=== PATIENT | female | born 1985 | race Caucasian/White ===

== ENCOUNTER → 2016-10-03 | Outpatient (CLI) | payer OTHER ==
[~2016-10-03] MED LIST: ACET-1256 PO; AMOX500C3 PO; BCPILLS PO; CYM20 PO; CYM60 PO; DULO60CA44 PO; GABA-113 PO; IBUP-103 PO; LRS10 PO; NRN400 PO; NRN600 PO; OXYC1TAB3 PO
--- NOTE | 2016-10-03 20:26 | DIAGNOSTIC IMAGING REPORT ---
CERVICAL SPINE MRI HISTORY: Neck pain. Right arm numbness. TECHNIQUE: Multiplanar multisequence MRI of the cervical spine was performed without the use of contrast. COMPARISON STUDY: None. FINDINGS: Straightening of the cervical spine. Alignment is intact. No fractures. Prevertebral soft tissues and the C1-C2 interval are intact. The visualized posterior fossa is unremarkable. Mild disc space narrowing at C5-C6. The cervical spinal cord is normal in course, caliber, and signal intensity. Broad-based posterior disc bulge at T2-T3 with a small right paracentral disc protrusion. This likely abuts but does not deform the right anterior cord. This is only partially imaged on this study. C2-C3: No significant central canal or neural foraminal narrowing. C3-C4: No significant central canal or neural foraminal narrowing. C4-C5: Small broad-based posterior disc bulge without significant central canal or neural foraminal narrowing. C5-C6: Small broad-based posterior disc bulge asymmetric to the left resulting in near-complete effacement of the anterior thecal sac without cord deformity. There is also mild left-sided neural foraminal narrowing. C6-C7: Small left paracentral focal disc protrusion without significant central canal narrowing. There is mild left-sided neural foraminal narrowing. C7-T1: No significant central canal or neural foraminal narrowing. IMPRESSION: 1. Broad-based posterior disc bulge at T2-T3 with a small right paracentral disc protrusion. This likely abuts but does not deform the right anterior cord. This is only partially imaged on this study. 2. Small broad-based posterior disc bulge asymmetric to the left at C5-C6 resulting in near-complete effacement of the anterior thecal sac without cord deformity. There is also mild left neural foraminal narrowing. 3. Small left paracentral focal disc protrusion at C6-C7 without significant central canal narrowing. There is mild left-sided neural foraminal narrowing. 4. Straightening of the cervical spine. Electronically signed by: Douglas Wong M.D. 10/03/2016 8:23 PM Dictated Date/Time: 10/03/2016 8:17 PM
== END | disposition home or self-care (01) ==
LOC: C.MRI 19:31
PROVIDERS: ATTEND Orthopaedic Surgery Orthopaedic Surgery of the Spine
DX: M54.12 Radiculopathy, cervical region (principal)

== ENCOUNTER 2016-12-21 02:48 | Emergency (ER) | payer OTHER ==
[~2016-12-21] VITALS: Ht 157.5 cm; Wt 102.3 kg
[~2016-12-21 02:48] MED LIST changes: -ACET-1256 PO; -AMOX500C3 PO; -CYM60 PO; -DULO60CA44 PO; -GABA-113 PO; -IBUP-103 PO; -NRN600 PO; -OXYC1TAB3 PO
[2016-12-21 02:52] VITALS: TEMP 36.7; Ht 157.5 cm; Wt 102.3 kg
[2016-12-21] MEDS ORDERED: AMOXICILLIN 250 MG CAP PO STA (03:30)
[2016-12-21] MEDS ORDERED: OXYCODONE IR HOME PACK PO ONE (03:30)
[2016-12-21] MEDS ORDERED: AMOX500C3 PO (03:34)
[2016-12-21] MEDS ORDERED: OXYC1TAB3 PO (03:34)
[2016-12-21 03:52] VITALS: BP 142/90; PULSE 77; O2SAT 94
[2016-12-21] MEDS ORDERED: DULO60CA44 PO (03:54)
[2016-12-21] MEDS ORDERED: GABA-113 PO (03:55)
--- NOTE | 2016-12-21 03:57 | EMERGENCY ROOM VISIT NOTE ---
History First contact with patient: 03:19 Chief Complaint: DENTAL PAIN Stated Complaint: TOOTH/MOUTH PAIN Nursing Triage Summary: left upper dental pain that radiats into ear since 2100. pt took benzacaine, tylenol and aleve without relief. History of Present Illness The patient is a 31 year old female who presents to the Emergency Room with complaints of right upper dental pain for the past few days. Patient states her filling broke off and is to see the dentist. Pain currently 8 out of 10. She tried Tylenol and Motrin with no relief of symptoms. Patient denies chest pain, dyspnea, fever, chills, facial swelling, neck stiffness, dysphagia, cold symptoms. She is tolerate by mouth fluids and food. Review of Systems See HPI for pertinent positives & negatives. A total of 10 systems reviewed and were otherwise negative. Past Medical/Surgical History Medical Problems: (1) Calculus Of Kidney (2) Calculus Of Ureter (3) Cervicalgia (4) Cholecystectomy (5) Migraine Family History Cancer Diabetes mellitus FHx: gallbladder disease Kidney disease Kidney stones Social History Smoking Status: Current Every Day Smoker Alcohol Use: occasionally Drug Use: none Marital Status: Housing Status: lives with family Occupation Status: employed Current/Historical Medications Scheduled Amoxicillin (Amoxil), 500 MG PO TID Control Pills ( Control Pills), 1 TAB PO DAILY Duloxetine HCl (Duloxetine HCl), 20 MG PO DAILY Gabapentin (Gabapentin), 400 MG PO TID Scheduled PRN Baclofen (Baclofen), 10 MG PO BID PRN for Muscle Spasms Oxycodone Immediate Rel Tab (Roxicodone Ir), 1-2 TAB PO Q4H PRN for Severe Pain Allergies Coded Allergies: No Known Allergies (Unverified , 08/27/15) Physical Exam Vital Signs Date Time Temp Pulse Resp B/P (MAP) Pulse Ox O2 Delivery O2 Flow Rate FiO2 12/21/16 02:52 36.7 86 24 155/91 96 Room Air Physical Exam VITALS: Vitals are noted on the nurse's note and reviewed by myself. Vital signs stable. GENERAL: Pleasant female, in no acute distress, nondiaphoretic, well-developed well-nourished. SKIN: The skin was without rashes, erythema, edema, or bruising. There is no tenting of the skin. Capillary reflex less than 2 seconds. HEAD: Normocephalic atraumatic. EARS: External auditory canals clear, tympanic membranes pearly encarnacion without erythema or effusion bilaterally. EYES: Pupils equal round and reactive to light and accommodation. Conjunctivae without injection, sclerae without icterus. Extraocular movements intact. NOSE: Patent, turbinates without inflammation or discharge. No sinus tenderness. MOUTH: Mucous membranes moist. No Errol's angina Pharynx without erythema or exudate. Uvula midline. Airway patent. Tongue does not deviate. Dental exam: Right upper molar with dental decay with no palpable abscess. Overall dental hygiene fair. NECK: Supple without nuchal rigidity. No lymphadenopathy. No thyromegaly. Cervical spine is nontender. No JVD. No meningeal signs HEART: Regular rate and rhythm without murmurs gallops or rubs. LUNGS: Clear to auscultation bilaterally without wheezes, rales or rhonchi. No dullness to percussion. No retractions or accessory muscle use. ABDOMEN: Positive bowel sounds x 4. Normal tympanic percussion. Soft, nontender, without masses or organomegaly. Montesinos sign negative. No guarding or rebound tenderness. MUSCULOSKELETAL: No muscle atrophy, erythema, or edema noted. NEURO: Patient was alert and oriented to person place and time. Normal sensation to light and sharp touch. No focal neurological deficits. Medical Decision & Procedures Medications Administered Medications (Trade) Dose Ordered Sig/Diego Route Start Time Stop Time Status Last Admin Dose Admin Amoxicillin (Amoxil Cap) 500 mg NOW STAT PO 12/21/16 03:30 12/21/16 03:32 DC 12/21/16 03:47 500 MG Oxycodone HCl (Roxicodone Immediate Rel 5MG Home Pack) 1 homepack UD ONCE PO 12/21/16 03:30 12/21/16 03:32 DC 12/21/16 03:47 1 HOMEPACK ED Course Prior records reviewed and summarized as above. Triage Nursing notes reviewed. The patient's history was concerning for dental pain Differential diagnosis: Etiologies such as cellulitis, abscess, Errol angina, cavity, gingivitis, as well as others were entertained.. Physical examination: The physical examination was consistent with dental pain from dental decay ER treatment provided: Amoxicillin, OxyIR On reassessment the patient felt better. Diagnostics interpreted by me: Deferred This appears to be isolated dental pain from dental cavities. Patient was neurovascularly and neurologically intact. No signs of abscess or airway compromise or Errol angina. She is advised to take antibiotics as directed and to see dentistry as soon as possible for definitive care for her dental problem. She was counseled on proper dental hygiene. She verbalized understanding this. She is advised to return to the ER immediately for fevers, facial swelling, dysphagia, worsening signs or symptoms or as needed. By the evaluation outlined above emergent etiologies such as abscess, Errol angina, as well as others were deemed relatively unlikely. The pt informed about the findings as listed above. All questions were answered and pleased with the treatment. Return instructions were outlined and the patient was discharged in stable condition. Outpatient prescription management: Amoxicillin, OxyIR Referral: The patient was referred back to dentistry and primary care physician for follow -up in 2 to 3 days for a recheck of the current condition. Medical Decision As above [place] Drug Monitoring Program Search Results: patient reviewed within database, no issues identified Impression Primary Impression: Dental caries Additional Impression: Tooth pain with chewing Departure Information Dispostion Home / Self-Care Condition GOOD Prescriptions Oxycodone Immediate Rel Tab (ROXICODONE IR) 5 Mg Tab 1-2 TAB PO Q4H Y for Severe Pain, #10 TAB initial course Prov: Tri Serra PA-C 12/21/16 Amoxicillin (AMOXIL) 500 Mg Cap 500 MG PO TID for 10 Days, #30 CAP Prov: Tri Serra PA-C 12/21/16 Referrals Mansoor Oconnell D.O. Forms HOME CARE DOCUMENTATION FORM, IMPORTANT VISIT INFORMATION Patient Instructions Decay Tooth, Visit Dental, [facility] Additional Instructions Amoxicillin 500mg: Take one pill 3 times daily for 10 days for your infection. All antibiotics can cause diarrhea. If this occurs and you feel worse or it does not resolve in 1-2 days follow up with your doctor or return to the Emergency Department as this could be signs of serious underlying problems. Any medication can cause an allergic reaction, stop the pills immediately and return to the ER for rash, hives, breathing difficulties, or swelling. Oxycodone (OxyIR) 5mg: Take 1-2 pills every four hours for breakthrough pain. Avoid alcohol, operating machinery or dangerous equipment, working on ladders or roofs, DRIVING, or situations where being under the influence may be dangerous. It is recommended to use an [id number] stool softener such as Colace, 100mg twice daily while taking this medication to avoid constipation. Ibuprofen(Motrin, Advil) may be used for fever or pain. Use 600mg every six hours as needed. Take with food. Avoid using more than 2400mg in a 24 hour period. Do not use 2400mg per day for more than three consecutive days without physician direction. Prolonged inappropriate use can lead to stomach upset or ulcers. This medication can be taken if you need to drive, work, or perform activities which may be dangerous when taking narcotic pain medication. (AND/OR) Acetaminophen(Tylenol) may be used for fever or pain. Use 1000mg every six hours as needed. Avoid using more than 3000mg in a 24 hour period. This medication can be taken if you need to drive, work, or perform activities which may be dangerous when taking narcotic pain medication. [place] teeth twice a day, floss daily and do warm saltwater gargles 3 times a day. See a dentist as soon as possible for definitive care for your dental problem. Return to ER sooner for facial swelling, fever, redness, worsening signs or symptoms or as needed. Problem Qualifiers
== END 2016-12-21 03:53 | disposition home or self-care (01) ==
LOC: C.EDB 02:48
DX: K02.9 Dental caries, unspecified (principal); K08.89 Other specified disorders of teeth and supporting structures; Z83.3 Family history of diabetes mellitus; F17.200 Nicotine dependence, unspecified, uncomplicated

== ENCOUNTER 2017-02-03 19:11 | Emergency (ER) | payer OTHER ==
[~2017-02-03] VITALS: Ht 157.5 cm; Wt 99.8 kg
[~2017-02-03 19:11] MED LIST changes: -CYM20 PO; +DULO60CA44 PO; +GABA-113 PO; -NRN400 PO; +OXYC1TAB3 PO
[2017-02-03 19:14] VITALS: TEMP 36.9; Ht 157.5 cm; Wt 99.8 kg
[2017-02-03] MEDS ORDERED: ONDANSETRON INJ 2 MG/ML 2 ML VIAL IV STA (19:24)
[2017-02-03] MEDS ORDERED: SODIUM CHLORIDE 0.9% 1000ML 1,000 ML IV ONE (19:24)
[2017-02-03] MEDS ORDERED: SODIUM CHLORIDE 0.9% 1000ML 1,000 ML IV STA (19:24)
[2017-02-03 19:46] LABS: BASO % 0.3 %; BASO ABS # 0.03 K/uL (0-0.2); COMPLETE YES; EOS % 1.6 %; HEMATOCRIT 39.8 % (37-47); IG% 0.2 %; LYMPH % 35.8 %; LYMPH ABS # 3.36 K/uL (1.2-3.4); MEAN CELL VOLUME 85.6 fL (80-100); MEAN CORPUSCULAR HEMOGLOBIN 30.5 pg (25-34); MEAN CORPUSCULAR HGB CONC 35.7 g/dl (32-36); MEAN PLATELET VOLUME 10.7 fL (7.4-10.4); MONO % 6.8 %; NEUT % 55.3 %; PLATELET COUNT 342 K/uL (130-400); RED BLOOD COUNT 4.65 M/uL (4.2-5.4); WHITE BLOOD COUNT 9.38 K/uL (4.8-10.8)
[2017-02-03 20:01] LABS: URINE APPEARANCE CLEAR (CLEAR); URINE BILIRUBIN NEG (NEG); URINE COLOR YELLOW; URINE NITRITE NEG (NEG); URINE SPECIFIC GRAVITY 1.024 (1.000-1.030); UROBILINOGEN NEG (NEG)
[2017-02-03 20:03] LABS: MANUAL MICROSCOPIC REQUIRED? NO; REVIEW REQ? NO
[2017-02-03 20:03] LABS: BUN/CREATININE RATIO 10.6 (10-20); CALCIUM 8.6 mg/dl (8.5-10.1); CREATININE 0.7 mg/dl (0.60-1.20); POTASSIUM 3.6 mmol/L (3.5-5.1)
--- NOTE | 2017-02-03 20:03 | EMERGENCY ROOM VISIT NOTE ---
History Report prepared by Trudy: Aneta Hernandez Under the Supervision of: Dr. Deonte Welch M.D. First contact with patient: 19:19 Chief Complaint: NAUSEA Stated Complaint: STOMACH PAIN, NAUSEA Nursing Triage Summary: "I haven't gotten my period in over 2 weeks". pt c/o lower abd pain into lower back pain, nausea. Pt took at home preg test- neg. denies urinary symptoms History of Present Illness The patient is a 31 year old female who presents to the Emergency Room with complaints of worsening nausea starting two weeks ago. The patient states that her period is two weeks late. She states she took a test and it was negative. She reports that she doesn't think she could be . The patient complains of back pain and abdominal pain. She currently rates her pain as a 7/ 10 in severity. She reports that she has been taking Ibuprofen with no relief. The patient denies urinary symptoms, the pain radiating down her legs, vomiting , chest pain, shortness of breath, abnormal bowel movements, and being around anyone who has been sick. The patient notes a history of ovarian cysts. Source of History: patient Onset: two weeks ago Position: other (global) Symptom Intensity: 7/10 Quality: other (global) Timing: worsening Associated Symptoms: + abdominal pain, + back pain, No chest pain, No SOB, No vomiting, No urinary symptoms Note: The patient denies the pain radiating down her legs, abnormal bowel movements, and being around anyone who is sick. Review of Systems See HPI for pertinent positives & negatives. A total of 10 systems reviewed and were otherwise negative. Past Medical & Surgical Medical Problems: (1) Calculus Of Kidney (2) Calculus Of Ureter (3) Cervicalgia (4) Cholecystectomy (5) Migraine Old medical records were reviewed. Nurse's notes were reviewed and I agree with. Family History Cancer Diabetes mellitus FHx: gallbladder disease Kidney disease Kidney stones Social History Smoking Status: Current Every Day Smoker Alcohol Use: occasionally Drug Use: none Marital Status: Housing Status: lives with family Occupation Status: employed Current/Historical Medications Scheduled Duloxetine HCl (Duloxetine HCl), 60 MG PO DAILY Gabapentin (Gabapentin), 600 MG PO TID Scheduled PRN Acetaminophen (Tylenol), 1,000 MG PO Q6H PRN for Pain or Fever Baclofen (Baclofen), 10 MG PO TID PRN for Muscle Spasm Ibuprofen Tab (Advil), 800 MG PO Q8 PRN for Pain or Fever Allergies Coded Allergies: No Known Allergies (Unverified , 08/27/15) Physical Exam Vital Signs Date Time Temp Pulse Resp B/P (MAP) Pulse Ox O2 Delivery O2 Flow Rate FiO2 02/03/17 21:30 69 16 132/71 95 02/03/17 20:18 80 18 131/66 95 Room Air 02/03/17 19:14 36.9 91 16 132/86 97 Room Air Physical Exam General: Well developed well nourished in no acute distress, breathing comfortably on room air. Normal speech. Non-ill appearing middle aged woman. HEENT: Normal cephalic atraumatic. Pupils are equal round and reactive to light. Extraocular movements are intact. Oropharynx is pink with moist mucous membranes. No swelling of the mouth lips or tongue. Neck: Supple with a midline trachea. No meningeal signs or stiffness, no JVD or bruits. No Stridor. Chest: Clear to auscultation bilaterally. No wheezes or rhonchi. No increased work of breathing. Heart: regular rate and rhythm. Abdomen: Soft, nondistended without rebound guarding or rigidity. Mildly tender in bilateral lower quadrants. No peritonitis or masses. Tenderness in RUQ. Extremities: No cyanosis clubbing or edema. No calf tenderness or assymetry Spine/Back. Non tender to palpation. No CVA tenderness Skin: Good turgor without rashes. Neurologic exam: Cranial nerves two through 12 are intact. Motor and sensation are intact and symmetrical throughout. Medical Decision & Procedures ER Provider Diagnostic Interpretation: Radiology results as stated below per my review and radiologist interpretation: PELVIC COMPLETE NON OB HISTORY: 31 years-old Female acute pelvic pain. Concern for possible ovarian cyst. COMPARISON: CT abdomen and pelvis 10/31/2015 TECHNIQUE: Multiple real-time sonographic images of the deep pelvic structures were obtained transabdominally assessing grayscale appearance, color and spectral flow. Patient refused the transvaginal portion of the study. FINDINGS: Anteflexed uterus is seen, 11.8 x 4.0 x 5.7 cm. No focal myometrial mass lesion identified. Urinary bladder is partially collapsed. Endometrium is homogeneous, 1.1 cm. Small nabothian cyst is seen. Right ovary measures 4.3 x 4.0 x 3.5 cm. Within the right ovary there is a mildly complex cystic structure, 3.8 x 3.3 x 2.7 cm without internal vascularity and increased through transmission. Arterial inflow and venous outflow is documented within the right ovary. The left ovary measures 2.6 x 1.9 x 2.0 cm and is unremarkable with arterial inflow documented. No significant free pelvic fluid. IMPRESSION: 1. Mildly complex cyst of the right ovary is seen, 3.8 cm. No evidence of ovarian torsion. 2. Normal sonographic appearance of the uterus and left ovary. The above report was generated using voice recognition software. It may contain grammatical, syntax or spelling errors. Electronically signed by: Jesus Rae M.D. 02/03/2017 9:02 PM Dictated Date/Time: 02/03/2017 8:59 PM Laboratory Results 02/03/17 19:30 Red Blood Count 4.65, Mean Corpuscular Volume 85.6, Mean Corpuscular Hemoglobin 30.5, Mean Corpuscular Hemoglobin Concent 35.7, Mean Platelet Volume 10.7, Neutrophils (%) (Auto) 55.3, Lymphocytes (%) (Auto) 35.8, Monocytes (%) (Auto) 6.8, Eosinophils (%) (Auto) 1.6, Basophils (%) (Auto) 0.3, Neutrophils # (Auto) 5.18, Lymphocytes # (Auto) 3.36, Monocytes # (Auto) 0.64, Eosinophils # (Auto) 0.15, Basophils # (Auto) 0.03 02/03/17 19:30 Test 02/03/17 19:30 02/03/17 19:45 White Blood Count 9.38 K/uL (4.8-10.8) Red Blood Count 4.65 M/uL (4.2-5.4) Hemoglobin 14.2 g/dL (12.0-16.0) Hematocrit 39.8 % (37-47) Mean Corpuscular Volume 85.6 fL (80-100) Mean Corpuscular Hemoglobin 30.5 pg (25-34) Mean Corpuscular Hemoglobin Concent 35.7 g/dl (32-36) Platelet Count 342 K/uL (130-400) Mean Platelet Volume 10.7 fL (7.4-10.4) Neutrophils (%) (Auto) 55.3 % Lymphocytes (%) (Auto) 35.8 % Monocytes (%) (Auto) 6.8 % Eosinophils (%) (Auto) 1.6 % Basophils (%) (Auto) 0.3 % Neutrophils # (Auto) 5.18 K/uL (1.4-6.5) Lymphocytes # (Auto) 3.36 K/uL (1.2-3.4) Monocytes # (Auto) 0.64 K/uL (0.11-0.59) Eosinophils # (Auto) 0.15 K/uL (0-0.5) Basophils # (Auto) 0.03 K/uL (0-0.2) RDW Standard Deviation 41.3 fL (36.4-46.3) RDW Coefficient of Variation 13.2 % (11.5-14.5) Immature Granulocyte % (Auto) 0.2 % Immature Granulocyte # (Auto) 0.02 K/uL (0.00-0.02) Anion Gap 8.0 mmol/L (3-11) Est Creatinine Clear Calc Drug Dose 127.5 ml/min Estimated GFR () 132.9 Estimated GFR (Non- 114.6 BUN/Creatinine Ratio 10.6 (10-20) Calcium Level 8.6 mg/dl (8.5-10.1) Total Bilirubin 0.3 mg/dl (0.2-1) Direct Bilirubin 0.1 mg/dl (0-0.2) Aspartate Amino Transf (AST/SGOT) 11 U/L (15-37) Alanine Aminotransferase (ALT/SGPT) 17 U/L (12-78) Alkaline Phosphatase 96 U/L (45-117) Total Protein 7.3 gm/dl (6.4-8.2) Albumin 3.5 gm/dl (3.4-5.0) Lipase 107 U/L (73-393) Human Chorionic Gonadotropin, Qual NEG (NEG) Urine Color YELLOW Urine Appearance CLEAR (CLEAR) Urine pH 6.0 (4.5-7.5) Urine Specific [place] 1.024 (1.000-1.030) Urine Protein NEG (NEG) Urine Glucose (UA) NEG (NEG) Urine Ketones NEG (NEG) Urine Occult Blood NEG (NEG) Urine Nitrite NEG (NEG) Urine Bilirubin NEG (NEG) Urine Urobilinogen NEG (NEG) Urine Leukocyte Esterase NEG (NEG) Laboratory studies as stated above per my review. Medications Administered Medications (Trade) Dose Ordered Sig/Diego Route Start Time Stop Time Status Last Admin Dose Admin Sodium Chloride 1,000 ml @ 999 mls/hr Q1H1M STAT IV 02/03/17 19:24 02/03/17 20:24 DC 02/03/17 19:38 999 MLS/HR Sodium Chloride 1,000 ml @ 150 mls/hr Q6H40M ONCE IV 02/03/17 19:24 02/03/17 21:51 DC 02/03/17 19:39 150 MLS/HR Ondansetron HCl (Zofran Inj) 4 mg NOW STAT IV 02/03/17 19:24 02/03/17 19:27 DC 02/03/17 19:42 4 MG Ketorolac Tromethamine (Toradol Inj) 30 mg NOW STAT IV 02/03/17 21:19 02/03/17 21:20 DC 02/03/17 21:29 30 MG ED Course 1920: Past medical records reviewed. The patient was evaluated in room B3B, and a complete history and physical examination were performed. 1923: Ordered Zofran Inj 4 mg IV, NSS 1000 ml @ 150 mls/hr IV, NSS 1000 ml @ 999 mls/hr IV. 2104: I reevaluated the patient, but she was in ultrasound. 2115: Upon reevaluation, the patient is resting comfortably. I discussed the results and treatment plan with her. She verbalized agreement of the treatment plan. The patient was discharged home. 2118: Ordered Toradol Inj 30 mg IV. Medical Decision Differential diagnoses include ovarian cyst, infection, inflammation, UTI, , ectopic . This patient comes in as described above. She was placed in room B4. She comes in complaining of lower abdominal pain bilaterally that is been going on for about 2 weeks. She also has no period for 2 weeks. She's had no vaginal bleeding. she took a home test was negative. She has a history of ovarian cysts. She also history of fibromyalgia among other medical problems. She looks well on exam. she has no peritonitis .she has some mild right upper quadrant tenderness as well however her gallbladder from previously surgically removed. IV access was established and she was hydrated with IV normal saline. She was given Zofran 4 mg IV. Blood work and urinalysis and ultrasound were ordered. Is no white count or fever to suggest infection. She's no peritonitis. Her serum test was negative. She has no acute electrolyte or metabolic abdomen she has nothing to suggest liver or gallbladder or pancreas disease. Ultrasound was obtained of the pelvis. There is a small cyst on the right but no evidence of torsion. She was given Toradol 30 mg IV. She has no vaginal bleeding or discharge or anything to suggest a pelvic infection. She's going to follow-up with her regular doctor or drafting teacher this week for recheck and use anti-inflammatories. Return if: increasing pain, worsening of symptoms, fever or chills, any new problems or concerns. She is happy with plan and discharged to home. Impression Primary Impression: Lower abdominal pain Scribe Attestation The scribe's documentation has been prepared under my direction and personally reviewed by me in its entirety. I confirm that the note above accurately reflects all work, treatment, procedures, and medical decision making performed by me. Departure Information Dispostion Home / Self-Care Referrals No Doctor, Assigned (PCP) Forms HOME CARE DOCUMENTATION FORM, IMPORTANT VISIT INFORMATION Patient Instructions My [facility] Additional Instructions Rest Drink plent of fluids Use ibuprofen 400 mg every 6 hours, take with food Return if: Increasing pain, fever chills, worsening of symptoms, any new problems or concerns. Follow-up with your drafting teacher or regular doctor next couple days for recheck
[2017-02-03 20:10] LABS: PREG INTERNAL NEGATIVE QC NEG CLEAR BACKGROUND; PREG INTERNAL POSITIVE QC POS CONTROL LINE
--- NOTE | 2017-02-03 21:03 | DIAGNOSTIC IMAGING REPORT ---
PELVIC COMPLETE NON OB HISTORY: 31 years-old Female acute pelvic pain. Concern for possible ovarian cyst. COMPARISON: CT abdomen and pelvis 10/31/2015 TECHNIQUE: Multiple real-time sonographic images of the deep pelvic structures were obtained transabdominally assessing grayscale appearance, color and spectral flow. Patient refused the transvaginal portion of the study. FINDINGS: Anteflexed uterus is seen, 11.8 x 4.0 x 5.7 cm. No focal myometrial mass lesion identified. Urinary bladder is partially collapsed. Endometrium is homogeneous, 1.1 cm. Small nabothian cyst is seen. Right ovary measures 4.3 x 4.0 x 3.5 cm. Within the right ovary there is a mildly complex cystic structure, 3.8 x 3.3 x 2.7 cm without internal vascularity and increased through transmission. Arterial inflow and venous outflow is documented within the right ovary. The left ovary measures 2.6 x 1.9 x 2.0 cm and is unremarkable with arterial inflow documented. No significant free pelvic fluid. IMPRESSION: 1. Mildly complex cyst of the right ovary is seen, 3.8 cm. No evidence of ovarian torsion. 2. Normal sonographic appearance of the uterus and left ovary. The above report was generated using voice recognition software. It may contain grammatical, syntax or spelling errors. Electronically signed by: Jesus Rae M.D. 02/03/2017 9:02 PM Dictated Date/Time: 02/03/2017 8:59 PM
[2017-02-03] MEDS ORDERED: NRN600 PO (21:19)
[2017-02-03] MEDS ORDERED: KETOROLAC TROMETHAMINE 30 MG/ML VIAL IV STA (21:19)
[2017-02-03] MEDS ORDERED: CYM60 PO (21:19)
[2017-02-03] MEDS ORDERED: ACET-1256 PO (21:20)
[2017-02-03] MEDS ORDERED: IBUP-103 PO (21:20)
[2017-02-03 21:30] VITALS: BP 132/71; PULSE 69; O2SAT 95
== END 2017-02-03 21:30 | disposition home or self-care (01) ==
LOC: C.EDB 19:13
DX: R10.30 Lower abdominal pain, unspecified (principal); Z87.442 Personal history of urinary calculi; N83.209 Unspecified ovarian cyst, unspecified side; G43.909 Migraine, unspecified, not intractable, without status migrainosus; Z80.9 Family history of malignant neoplasm, unspecified; Z83.3 Family history of diabetes mellitus; Z83.79 Family history of other diseases of the digestive system; Z84.1 Family history of disorders of kidney and ureter; F17.210 Nicotine dependence, cigarettes, uncomplicated; Z79.899 Other long term (current) drug therapy

== ENCOUNTER → 2017-05-09 | Outpatient (CLI) | payer OTHER ==
[~2017-05-09] MED LIST changes: +ACET-1256 PO; -BCPILLS PO; +CYM60 PO; -DULO60CA44 PO; -GABA-113 PO; +GADAVIST IV PRN; +IBUP-103 PO; +NRN600 PO; -OXYC1TAB3 PO
--- NOTE | 2017-05-09 17:58 | DIAGNOSTIC IMAGING REPORT ---
Brain MRI WITH AND WITHOUT CONTRAST HISTORY: Headaches. Numbness in face arms and leg. R41.9 Cognitive complaints TECHNIQUE: Multiplanar multisequence MRI of the brain was performed both before and after the intravenous administration of contrast. COMPARISON STUDY: Head CT 11/17/2013. FINDINGS: There are no areas of restricted diffusion to suggest acute infarction. The midline structures are intact. The paranasal sinuses are clear. The mastoid air cells are clear. The ventricles and sulci are within normal limits for age. There is no mass, hematoma, midline shift. The major vascular flow-voids at the skull base are well maintained. Postcontrast sequences show no areas of abnormal enhancement. IMPRESSION: Normal brain MRI. Electronically signed by: Douglas Wong M.D. 05/09/2017 5:57 PM Dictated Date/Time: 05/09/2017 5:53 PM
== END | disposition home or self-care (01) ==
LOC: C.MRI 16:18
PROVIDERS: ATTEND Psychiatry & Neurology Neurology
DX: R41.9 Unspecified symptoms and signs involving cognitive functions and awareness (principal)

== ENCOUNTER 2017-09-05 18:07 | Emergency (ER) | payer OTHER ==
[~2017-09-05] VITALS: Ht 157.5 cm; Wt 107.0 kg
[~2017-09-05 18:07] MED LIST changes: -ACET-1256 PO; -CYM60 PO; -GADAVIST IV PRN; -IBUP-103 PO; -NRN600 PO
[2017-09-05 18:19] VITALS: TEMP 36.8; Ht 157.5 cm; Wt 107.0 kg
[2017-09-05] MEDS ORDERED: TRAM-10 PO (18:48)
[2017-09-05] MEDS ORDERED: FLX10 PO (18:48)
[2017-09-05] MEDS ORDERED: DEXAMETHASONE SOD INJ 4 MG/ML VIAL IM STA (19:04)
[2017-09-05] MEDS ORDERED: CYCLOBENZAPRINE HCL 10 MG TAB PO STA (19:04)
[2017-09-05] MEDS ORDERED: HYDROmorphone INJ 2 MG/ML SYR/VIAL IM ONE (19:15)
[2017-09-05] MEDS ORDERED: KETOROLAC TROMETHAMINE 60 MG/2 ML VIAL IM ONE (19:15)
--- NOTE | 2017-09-05 19:31 | EMERGENCY ROOM VISIT NOTE ---
History First contact with patient: 18:33 Chief Complaint: BACK PAIN Stated Complaint: BACK PAIN,NECK BT SHOULDER BLADES & TAILBONE,DIZZY History of Present Illness The patient is a 32 year old female who presents to the Emergency Room with complaints of severe pain in her neck, mid and lower back for the last week. The patient had a mechanical fall landing on her buttocks. She has a history of chronic pain in her neck and back from bulged disks. She usually follows with Dr. Salazar. She could not get an appointment with him until October 03. She has been trying Tylenol, Flexeril and ibuprofen at home with minimal relief. She does have numbness and tingling in her hands bilaterally, particularly when she sleeps. She is also having tingling and numbness on the lateral and anterior aspect of her right thigh. No saddle paresthesias. No urinary or bowel incontinence. No weakness. Review of Systems 6 system review negative. Please see pertinent positives in the history of present illness section. Past Medical/Surgical History Medical Problems: (1) Calculus Of Kidney (2) Calculus Of Ureter (3) Cervicalgia (4) Cholecystectomy (5) Migraine Family History Cancer Diabetes mellitus FHx: gallbladder disease Kidney disease Kidney stones Social History Smoking Status: Current Every Day Smoker Alcohol Use: occasionally Drug Use: none Marital Status: Housing Status: lives with family Occupation Status: employed Current/Historical Medications Scheduled Cyclobenzaprine Hcl (Flexeril), 10 MG PO TID Duloxetine HCl (Duloxetine HCl), 60 MG PO DAILY Gabapentin (Gabapentin), 600 MG PO TID Methylprednisolone (Medrol Dosepak), 0 PO DAILY Scheduled PRN Acetaminophen (Tylenol), 1,000 MG PO Q6H PRN for Pain or Fever Cyclobenzaprine HCl (Cyclobenzaprine HCl), 10 MG PO BID PRN for Muscle Spasm Ibuprofen Tab (Advil), 800 MG PO Q8 PRN for Pain or Fever Oxycodone/Acetaminophen 5MG/325MG (Percocet 5MG/325MG), 1-2 TABS PO Q4H PRN for prn Tramadol (Ultram), 50 MG PO Q6H PRN for Pain Physical Exam Vital Signs Date Time Temp Pulse Resp B/P (MAP) Pulse Ox O2 Delivery O2 Flow Rate FiO2 09/05/17 23:27 98 16 146/92 96 09/05/17 23:04 98 16 146/92 96 Room Air 09/05/17 20:00 88 20 116/76 94 Room Air 09/05/17 18:19 36.8 109 20 133/88 94 Room Air Physical Exam VITALS: Vitals are noted on the nurse's note and reviewed by myself. Vital signs stable. GENERAL: 32-year-old female, in moderate discomfort,, SKIN: The skin was without rashes, erythema, edema, or bruising. HEAD: Normocephalic atraumatic. HEART: Regular rate and rhythm without murmurs gallops or rubs. LUNGS: Clear to auscultation bilaterally without wheezes, rales or rhonchi. No accessory muscle use. MUSCULOSKELETAL: Tenderness to palpation noted over the cervical spinous processes, mid thoracic spinous processes and the sacral area. Radial pulse +2 bilaterally. Hand Cloth Folder strength 5/5 bilaterally. Strength in the lower extremities is equal bilaterally. Sensation in lower extremities is equal and intact bilaterally. DP pulse +2 bilaterally. NEURO: Patient was alert and oriented to person place and time. Normal sensation to touch. No focal neurological deficits. Medical Decision & Procedures ER Provider Diagnostic Interpretation: MRI cervical spine, thoracic spine and lumbar spine IMPRESSION: 1. Multilevel degenerative changes with disc osteophyte complexes from C4-5 through C6-7. 2. Spinal canal narrowing most significant at C5-6 with mild contouring of the left paracentral anterior spinal cord. 3. Neural foraminal narrowing at C5-6 and C6-7 on the left. Electronically signed by: Lenny Braun M.D. 09/05/2017 10:59 PM Dictated Date/Time: 09/05/2017 10:53 PM The status of this report is Signed. Draft = Not yet reviewed or approved by Radiologist. Signed = Reviewed and approved by Radiologist. <AttendingPhy></AttendingPhy> <FamilyPhy>Amanda Leggett D.O.</FamilyPhy> < PrimaryPhy>Amanda Leggett D.O.</PrimaryPhy> <UnitNumber>[id number]</ UnitNumber> <VisitNumber>[id number]</ IMPRESSION: Minimal degenerative change in the lower lumbar spine without evidence of neural foraminal or spinal canal narrowing. Electronically signed by: Lenny Braun M.D. 09/05/2017 9:55 PM Dictated Date/Time: 09/05/2017 9:52 PM The status of this report is Signed. Draft = Not yet reviewed or approved by Radiologist. Signed = Reviewed and approved by Radiologist. <AttendingPhy></AttendingPhy> <FamilyPhy>Amanda Leggett D.O.</FamilyPhy> < PrimaryPhy>Amanda Leggett D.O.</PrimaryPhy> <UnitNumber>[id number]</ UnitNumber> <VisitNumber>[id number]</VisitNumber> IMPRESSION: Multilevel degenerative changes of the upper thoracic spine with small disc osteophyte complexes from T2-3 through T7-8. No significant spinal canal or neural foraminal narrowing. Electronically signed by: Lenny Braun M.D. 09/05/2017 10:28 PM Dictated Date/Time: 09/05/2017 10:23 PM The status of this report is Signed. Draft = Not yet reviewed or approved by Radiologist. Signed = Reviewed and approved by Radiologist. <AttendingPhy></AttendingPhy> <FamilyPhy>Amanda Leggett D.O.</FamilyPhy> < PrimaryPhy>Amanda Leggett D.O.</PrimaryPhy> <UnitNumber>[id number]</ UnitNumber> <VisitNumber>[id number]</VisitNumber> <PatientName>SETH CHIN</PatientName> <DateOfBirth>1985</DateOfBirth> <Location>[facility]</Location > <ServiceDate>09/05/17</ServiceDate> <MNE>ESINDI</MNE> <OrderingPhy>Tiffanie Wilkinson PA-C</OrderingPhy> <OrderingPhyMNE>f rep ord dr gordon</OrderingPhyMNE> < DictatingPhyMNE>f rep dict dr gordon</DictatingPhyMNE> <CCListMNE>f rep ct mne</ CCListMNE> <AdmittingPhyMNE>f pt admit dr gordon</AdmittingPhyMNE> <AttendingPhyMNE >f pt attend dr gordon</AttendingPhyMNE> <ConsultingPhyMNE>f pt consult dr gordon</ConsultingPhyMNE> <FamilyPhyMNE>f pt fam dr gordon</FamilyPhyMNE> <OtherPhyMNE>f pt other dr gordon</OtherPhyMNE> < PrimaryPhyMNE>f pt prim care dr gordon</PrimaryPhyMNE> <ReferringPhyMNE>f pt referring dr gordon</ReferringPhyMNE> Medications Administered Medications (Trade) Dose Ordered Sig/Diego Route Start Time Stop Time Status Last Admin Dose Admin Hydromorphone HCl (Dilaudid Inj) 2 mg ONE ONCE IM 09/05/17 19:15 09/05/17 19:16 DC 09/05/17 19:32 2 MG Ketorolac Tromethamine (Toradol Inj) 60 mg ONE ONCE IM 09/05/17 19:15 09/05/17 19:16 DC 09/05/17 19:32 60 MG Dexamethasone Sodium Phosphate (Decadron Inj) 10 mg NOW STAT IM 09/05/17 19:04 09/05/17 19:07 DC 09/05/17 19:04 10 MG Cyclobenzaprine HCl (Flexeril Tab) 10 mg NOW STAT PO 09/05/17 19:04 09/05/17 19:07 DC 09/05/17 19:04 10 MG ED Course The patient was seen and examined She was medicated with Dilaudid 2 mg, Toradol 60 mg and Decadron 10 mg IM. She was given Flexeril 10 mg by mouth. Imaging was performed and reviewed Upon reassessment, the patient was more comfortable. We discussed the results of her MRI. She voiced understanding, was comfortable being discharged home. Discharge instructions were reviewed, and she was discharged in good condition Medical Decision Differential diagnosis: Spine fracture, ligamentous injury, subluxation, spondylolisthesis, spondylosis, herniated disc, contusion, muscle spasm, ureteral stone This patient is a 32-year-old female that presents to the emergency department with diffuse back pain after a mechanical fall. On exam, she was tender over some spinous processes and thoracic, cervical and lumbar spine. She was uncomfortable in appearance. The patient was complaining of numbness and tingling in her hands and right lateral thigh. I cannot appreciate any weakness on exam. She was neurovascularly intact. An MRI was performed. She does have some degenerative disc disease resulting in moderate stenosis at C5- C6. The patient had good symptomatic relief in the emergency department. I believe she is stable to be discharged home with follow-up from her orthopedic surgeon. She was comfortable with this plan. She will be treated with short course of narcotics, muscle relaxants and steroids. She agreed to return to the emergency department with any worsening symptoms such as saddle paresthesias or incontinence or weakness... This chart was completed in part utilizing [employer] Speech Voice Recognition software. Attempts were made to minimize the grammatical errors, random word insertions, pronoun errors and incomplete sentences. Any formal questions or concerns about the content, text or information contained within the body of this dictation should be directly addressed to the provider for clarification. Impression Primary Impression: Back pain Departure Information Dispostion Home / Self-Care Condition GOOD Prescriptions Cyclobenzaprine Hcl (FLEXERIL) 10 Mg Tab 10 MG PO TID for Muscle Spasms, #20 TAB Prov: Tiffanie Wilkinson PA-C 09/05/17 Methylprednisolone (MEDROL DOSEPAK) 4 Mg Carlos 0 PO DAILY, #1 PKT Prov: Tiffanie Wilkinson PA-C 09/05/17 Oxycodone/Acetaminophen 5MG/325MG (PERCOCET 5MG/325MG) Tab 1-2 TABS PO Q4H Y for prn, #20 TAB For Initial Treatment Prov: Tiffanie Wilkinson PA-C 09/05/17 Referrals Amanda Leggett D.O. (PCP) Iglesia Suggs M.D. Patient Instructions [facility] Additional Instructions You have been treated in the Emergency Department for Back Pain. You have received pain medicine in the emergency department which impairs your ability to operate a vehicle. It is illegal for you to drive after receiving these medicines. Please follow-up with the orthopedic doctor as soon as possible in addition to your primary care physician. Call tomorrow morning for a follow-up appointment. Please take the entire course of steroids Ibuprofen 600 mg every 6 hours Percocet 1-2 tabs every 4 hours for severe pain. Do not drink alcohol or drive while taking this medication. This may be taken with ibuprofen, but avoid Tylenol. Flexeril every 8 hours as needed for muscle spasm/pain. Please also do not drink alcohol or drive while taking this medication. Please do not hesitate to return to the emergency department for any new, worsening or concerning symptoms; especially, problems with urination or bowel movements, numbness or tingling in your groin or weakness in extrema It was a pleasure participating in your care today
[2017-09-05] MEDS ORDERED: CYM60 PO (21:19)
[2017-09-05] MEDS ORDERED: NRN600 PO (21:19)
[2017-09-05] MEDS ORDERED: IBUP-103 PO (21:20)
[2017-09-05] MEDS ORDERED: ACET-1256 PO (21:20)
--- NOTE | 2017-09-05 21:56 | DIAGNOSTIC IMAGING REPORT ---
LUMBAR SPINE W/O CONTRAST CLINICAL HISTORY: 32 years-old Female presenting with R leg numbness low back pain, fall downstairs one week ago, right side numbness and tingling. TECHNIQUE: Multisequence, multiplanar MR imaging of the lumbar spine was performed without the use of intravenous contrast. IV contrast: None. COMPARISON: CT of abdomen pelvis from 10/31/2015. FINDINGS: Localizer images: Unremarkable. Normal lumbar lordosis. Vertebral bodies maintain normal height, alignment, and bone marrow signal intensity. No evidence of fracture. No bony edema. Intervertebral disc desiccation and mild height loss noted at L4-5 and L5-S1. Remaining intervertebral discs are preserved. Minimal disc bulge at L4-5 without significant neural foraminal or spinal canal narrowing. Similar findings noted at L5-S1. Spinal cord ends in good position at L1. Cauda equina normal in morphology. Paraspinal soft tissues normal. Nonspecific edema in the subcutaneous tissue of the lumbar region. IMPRESSION: Minimal degenerative change in the lower lumbar spine without evidence of neural foraminal or spinal canal narrowing. Electronically signed by: Lenny Braun M.D. 09/05/2017 9:55 PM Dictated Date/Time: 09/05/2017 9:52 PM
--- NOTE | 2017-09-05 22:29 | DIAGNOSTIC IMAGING REPORT ---
THORACIC SPINE WITHOUT CLINICAL HISTORY: 32 years-old Female presenting with mid back pain. TECHNIQUE: Multisequence, multiplanar MR imaging of the thoracic spine was performed without the use of intravenous contrast. IV contrast: None. COMPARISON: CTA chest from . FINDINGS: Localizer images: Unremarkable. Normal thoracic kyphosis. Vertebral bodies maintain normal height, alignment, and bone marrow signal intensity. Intervertebral discs demonstrate desiccation in the upper thoracic spine, where there are disc osteophyte complexes noted from T2-3 through T7-8. These result in mild degrees of effacement of the ventral thecal sac. Minimal contouring of the spinal cord results, which is greatest at T7-8 (series 8 image 17). No neural foraminal narrowing. Thoracic spinal cord normal in morphology and signal intensity. Paraspinal soft tissues within normal limits. IMPRESSION: Multilevel degenerative changes of the upper thoracic spine with small disc osteophyte complexes from T2-3 through T7-8. No significant spinal canal or neural foraminal narrowing. Electronically signed by: Lenny Braun M.D. 09/05/2017 10:28 PM Dictated Date/Time: 09/05/2017 10:23 PM
--- NOTE | 2017-09-05 23:00 | DIAGNOSTIC IMAGING REPORT ---
CERVICAL WITHOUT CONTRAST CLINICAL HISTORY: 32 years-old Female presenting with numbness in bilateral hands neck pain. TECHNIQUE: Multisequence, multiplanar MR imaging of the cervical spine was performed without the use of intravenous contrast. IV contrast: None. COMPARISON: 10/03/2016. FINDINGS: Localizer images: Unremarkable. Straightening of normal cervical lordosis likely positional and secondary to multilevel degenerative changes. Vertebral bodies maintain normal height, alignment, bone marrow signal intensity. Diffuse intervertebral disc desiccation no height loss is now apparent. Disc osteophyte complexes evident at C4-5 through C6-7. These result in minimal thecal sac effacement at C4-5. More significant effacement at C5-6 with resultant mild contouring of the left paracentral anterior spinal cord. Similar though less severe findings at C6-7. Neural foraminal narrowing evident, mild on the left at C5-6 and moderate on the left at C6-7. Cervical spinal cord normal in signal intensity and morphology apart from mild contouring as mentioned above. Paraspinal soft tissues normal. No epidural collection. IMPRESSION: 1. Multilevel degenerative changes with disc osteophyte complexes from C4-5 through C6-7. 2. Spinal canal narrowing most significant at C5-6 with mild contouring of the left paracentral anterior spinal cord. 3. Neural foraminal narrowing at C5-6 and C6-7 on the left. Electronically signed by: Lenny Braun M.D. 09/05/2017 10:59 PM Dictated Date/Time: 09/05/2017 10:53 PM
[2017-09-05] MEDS ORDERED: METH4PAK PO (23:16)
[2017-09-05] MEDS ORDERED: CYCL10TA6 PO (23:16)
[2017-09-05] MEDS ORDERED: OXYC-57 PO (23:16)
[2017-09-05 23:27] VITALS: BP 146/92; PULSE 98; O2SAT 96
== END 2017-09-05 23:29 | disposition home or self-care (01) ==
LOC: C.EDB 18:08 → C.EDC 23:29
DX: M54.2 Cervicalgia (principal); M54.6 Pain in thoracic spine; M54.5 Low back pain; R20.0 Anesthesia of skin; R20.2 Paresthesia of skin; F17.200 Nicotine dependence, unspecified, uncomplicated; Z87.442 Personal history of urinary calculi; Z90.49 Acquired absence of other specified parts of digestive tract; Z83.3 Family history of diabetes mellitus; Z84.1 Family history of disorders of kidney and ureter

== ENCOUNTER 2022-10-17 19:04 | Inpatient (IN) ==
--- NOTE | 2022-10-17 19:22 | Emergency Department Note ---
Impression & Plan Mood disorder, Depression, Suicidal ideations ED Provider Note NAME: SETH CHIN AGE: 37 SEX: F : 1985 ARRIVES VIA: Walk-In INFORMANT: Patient ED PROVIDER(S): Markie Faulkner DO CHIEF COMPLAINT: Suicidal ideations HPI: Patient is a 36-year-old female who presents to the ER for suicidal ideations. She notes that she has been struggling to hold it together. She d oes have a history of bipolar. She was recently decreased on her Effexor and added Lamictal within the past 24 hours. She is currently taking amitriptyline as well. She notes that she feels manic. She cannot sleep. She has not been eating and drinking. She has 2 girls and she feels they are much better off without her. She feels hopeless. She has not been able to go to work. She is getting no support from her family. She thinks that both her children would be much better off being raised by her mother. She denies any auditory visual hallucinations. She feels as though she is a danger to herself and cannot take it anymore and wants to come in to be admitted. No clear plan at this point to kill her self. But previously she has thought of driving off the road. PAST MEDICAL HISTORY:See Below PAST SURGICAL HISTORY:See Below FAMILY HISTORY:See Below SOCIAL HISTORY:See Below HOME MEDICATIONS:See Below ALLERGIES:See Below VITALS:See Below PHYSICAL EXAMINATION: GENERAL: Sitting up in bed, alert, tearful, disheveled EYE EXAM: normal conjunctiva. OROPHARYNX: no exudate, no erythema, lips, buccal mucosa, and tongue normal and mucous membranes are moist NECK: supple, no nuchal rigidity, no adenopathy, non-tender LUNGS: Clear to auscultation. Normal chest wall mechanics HEART: no murmurs, S1 normal and S2 normal ABDOMEN: abdomen soft, non-tender, normo-active bowel sounds, no masses, no rebound or guarding. BACK: Back is symmetrical on inspection and there is no deformity, no midline tenderness, no CVA tenderness. SKIN: no rashes and no bruising UPPER EXTREMITIES: upper extremities are grossly normal. LOWER EXTREMITIES: No pitting edema. NEURO EXAM: Normal sensorium, cranial nerves II-XII grossly intact, normal speech, no gross weakness of arms, no gross weakness of legs. PSYCH: Admits to passive suicidal thoughts with no clear plan feeling helpless with no support. No auditory visual hallucinations. Constantly crying. MEDICAL DECISION MAKING: Patient is a 37-year-old female who presents ER for above-stated complaint. Blood work was obtained and shows mild leukocytosis of 12.7. No anemia. BMP with mild hypokalemia 3.3 which I favor secondary to the acute tachypnea and her being worked up upon arrival. LFTs bilirubin was unremarkable. TSH was unremarkable. UA was contaminated. was negative. UA was positive for marijuana. Alcohol negative. COVID-negative. Patient was extremely worked up and crying and consequently blood pressures were mildly elevated in the 160s. She was given 2 dose of Ativan to help her calm down. She is feeling better. Blood pressure 130. She has no other complaints. No need for any additional me dications at this time. Patient was updated bedside. She is agreeable to coming on 201. Discussed with our psychiatric care transport nurse. Referral made to 3 [facility]. Currently awaiting approval from 3 S. for admission mild to 201. ED OBSERVATIN: The patient was placed in observation status at 7:15PM. Medical stability and psychiatric evaluation. During the time in observation, the patient was frequent ly reassessed and received 2 dose of Ativan as she was extremely tearful and emotional. On Final reassessment the patient blood work was stable and she was resting comfortably in the ER and the patient will be admitted at this time. A total observation time of 6 hours at 1:45 AM Triage Nursing notes reviewed. Limited review of prior medical records performed Vital Signs: reviewed and remarkable for no significant abnormalities Differential diagnosis: Mood disorder, infection, hypoglycemia, electrolyte abnormalities, cardiac sources, intracerebral event, toxicologic, trauma, neurologic, as well as other pathologies. ER treatment provided: See below Diagnostics interpreted by me include EKG and cardiac monitoring as listed below: -Laboratory studies:Interpreted by me as stated above in MDM and shown below. Imaging studies: Xrays: As interpreted by me:none CTs show: none Consultation(s): As described in MDM Procedures:none Critical Care: None Past Med/Surg History Medical History (Updated 10/18/22 @ 18:10 by Bryon Moran MD) Depression Fibromyalgia IBS (irritable bowel syndrome) Kidney stones Mood disorder Ovarian cyst Surgical History History of colonoscopy Social History Smoking Status: Current every day smoker Tobacco Type: Cigarettes Hx Alcohol Use: No Preferred Language: Y[place]ut Communication Ability: Effective Follow Up Specialist Required: No Beliefs That Will Affect Care: None marital status: Single Current Living Situation: Alone current occupational status: employed Feels Safe at Home: Yes Gender Identity: Female Assistive Devices: Glasses Allergies Allergies Allergy/AdvReac Type Severity Reaction Status Date / Time No Known Allergies Allergy Verified 07/04/22 17:04 Home Meds Home Medications Medication Instructions Recorded Confirmed famotidine 20 mg tablet 20 mg PO DAILY 07/04/22 10/17/22 amitriptyline 25 mg tablet 25 mg PO HS 10/17/22 10/18/22 lamotrigine 25 mg tablet 25 mg PO 1XD 10/17/22 10/17/22 omeprazole 40 mg capsule,delayed 40 mg PO 1XD 10/17/22 10/17/22 release venlafaxine 75 mg capsule,extended 75 mg PO 1XD 10/17/22 10/17/22 release 24 hr Results & Data (ED) Vital Signs Vital Signs - 24 hr 10/17/22 23:48 Pulse Rate [Apical] 89 Pulse Rhythm [Apical] Regular Pulse Strength [Apical] Normal Respiratory Rate 18 Respiratory Effort / Characteristics Non-Labored Respiratory Depth Normal Respiratory Pattern Regular Blood Pressure [Right Arm] 134/55 L Blood Pressure Mean [Right Arm] 81 Blood Pressure Position [Right Arm] Lying Pulse Oximetry 96 Oxygen Delivery Method Room Air Laboratory Data 10/17/22 19:34 10/17/22 19:34 Lab Results 10/17/22 10/17/22 10/17/22 Range/Units 19:25 19:25 19:25 WBC (4.8-10.8) K/ul RBC (4.20-5.40) M/uL Hgb (12.0-16.0) g/dl Hct (37.0-47.0) % MCV (80.0-100.0) fL MCH (25.0-34.0) pg MCHC (32.0-36.0) g/dL RDW Std Deviation (36.4-46.3) fL RDW Coeff of Emily (11.5-14.5) % Plt Count (130-400) K/uL MPV (9.4-12.4) fL Immature Gran % (Auto) % Neut % (Auto) % Lymph % (Auto) % [place] % (Auto) % Eos % (Auto) % Baso % (Auto) % Neut # (Auto) (1.40-6.50) K/uL Lymph # (Auto) (1.2-3.4) K/uL [place] # (Auto) (0.11-0.59) K/uL Eos # (Auto) (0-0.50) K/uL Baso # (Auto) (0-0.2) K/uL Immature Gran # (Auto) (0.01-0.20) K/uL Sodium (136-145) mmol/L Potassium (3.5-5.1) mmol/L Chloride (98-107) mmol/L Carbon Dioxide (21-32) mmol/L Anion Gap (3-11) BUN (6-23) mg/dl Creatinine (0.6-1.2) mg/dl Est Cr Clr Drug Dosing ml/min Est GFR ( Amer) ml/min Est GFR (Non-Af Amer) ml/min BUN/Creatinine Ratio (10-20) Glucose (70-99(Fasting)) mg/dl Calcium (8.6-10.3) mg/dl Total Bilirubin (0.2-1.0) mg/dl AST (13-39) U/L ALT (7-52) U/L Alkaline Phosphatase (34-104) U/L Total Protein (6.0-8.3) gm/dl Albumin (3.4-5.0) gm/dl Globulin (2.5-4.0) gm/dl Albumin/Globulin Ratio (0.9-2) TSH (0.300-4.500) uIu/ml Urine Color Yellow Urine Appearance Cloudy A (Clear) Urine pH 6.5 (4.5-7.5) Ur Specific Adel 1.023 (1.000-1.030) Urine Protein Trace H (Negative) Urine Glucose (UA) Negative (Negative) Urine Ketones 3+ H (Negative) Urine Blood Negative (Negative) Urine Nitrite Negative (Negative) Urine Bilirubin Negative (Negative) Urine Urobilinogen Negative (Negative) Ur Leukocyte Esterase Negative (Negative) Urine WBC (Auto) 5-10 H (0-5) /hpf Urine RBC (Auto) 5-10 H (0-4) /hpf U Hyaline Cast (Auto) 1-5 (0-5) /lpf U Epithel Cells (Auto) >30 H (0-5) /lpf Urine Bacteria (Auto) 1+ H (Negative) Urine Mucus Present A (None Prsent) Urine Test Negative (Negative) POC Ur Test Salicylates (3.0-30) mg/dl Urine Opiates Screen Neg (Neg) Ur Methadone, Qual Neg (Neg) Acetaminophen (10-30) ug/ml Urine Barbiturates Neg (Neg) Ur Phencyclidine (PCP) Neg (Neg) U Amphetamin/Meth Scrn Neg (Neg) MDMA (Ecstasy) Screen Neg (Neg) U Benzodiazepines Scrn Neg (Neg) Ur Cocaine Metabolite Neg (Neg) U Marijuana (THC) Screen Pos H (Neg) Ethyl Alcohol mg/dL (<10.0) mg/dl SARS-CoV-2, RNA, NAAT (NEGATIVE) 10/17/22 10/17/22 10/17/22 Range/Units 19:30 19:34 19:34 WBC 12.78 H (4.8-10.8) K/ul RBC 5.06 (4.20-5.40) M/uL Hgb 14.4 (12.0-16.0) g/dl Hct 41.3 (37.0-47.0) % MCV 81.6 (80.0-100.0) fL MCH 28.5 (25.0-34.0) pg MCHC 34.9 (32.0-36.0) g/dL RDW Std Deviation 47.3 H (36.4-46.3) fL RDW Coeff of Emily 16.1 H (11.5-14.5) % Plt Count 415 H (130-400) K/uL MPV 10.4 (9.4-12.4) fL Immature Gran % (Auto) 0.2 % Neut % (Auto) 66.3 % Lymph % (Auto) 25.5 % [place] % (Auto) 6.8 % Eos % (Auto) 0.6 % Baso % (Auto) 0.6 % Neut # (Auto) 8.46 H (1.40-6.50) K/uL Lymph # (Auto) 3.26 (1.2-3.4) K/uL [place] # (Auto) 0.87 H (0.11-0.59) K/uL Eos # (Auto) 0.08 (0-0.50) K/uL Baso # (Auto) 0.08 (0-0.2) K/uL Immature Gran # (Auto) 0.03 (0.01-0.20) K/uL Sodium 138 (136-145) mmol/L Potassium 3.3 L (3.5-5.1) mmol/L Chloride 103 (98-107) mmol/L Carbon Dioxide 24 (21-32) mmol/L Anion Gap 11 (3-11) BUN 8 (6-23) mg/dl Creatinine 0.62 (0.6-1.2) mg/dl Est Cr Clr Drug Dosing 141.4 ml/min Est GFR ( Amer) 132.6 ml/min Est GFR (Non-Af Amer) 114.4 ml/min BUN/Creatinine Ratio 12.9 (10-20) Glucose 107 H (70-99(Fasting)) mg/dl Calcium 9.5 (8.6-10.3) mg/dl Total Bilirubin 0.4 (0.2-1.0) mg/dl AST 23 (13-39) U/L ALT 46 (7-52) U/L Alkaline Phosphatase 74 (34-104) U/L Total Protein 8.0 (6.0-8.3) gm/dl Albumin 4.6 (3.4-5.0) gm/dl Globulin 3.4 (2.5-4.0) gm/dl Albumin/Globulin Ratio 1.4 (0.9-2) TSH (0.300-4.500) uIu/ml Urine Color Urine Appearance (Clear) Urine pH (4.5-7.5) Ur Specific Adel (1.000-1.030) Urine Protein (Negative) Urine Glucose (UA) (Negative) Urine Ketones (Negative) Urine Blood (Negative) Urine Nitrite (Negative) Urine Bilirubin (Negative) Urine Urobilinogen (Negative) Ur Leukocyte Esterase (Negative) Urine WBC (Auto) (0-5) /hpf Urine RBC (Auto) (0-4) /hpf U Hyaline Cast (Auto) (0-5) /lpf U Epithel Cells (Auto) (0-5) /lpf Urine Bacteria (Auto) (Negative) Urine Mucus (None Prsent) Urine Test (Negative) POC Ur Test Salicylates (3.0-30) mg/dl Urine Opiates Screen (Neg) Ur Methadone, Qual (Neg) Acetaminophen (10-30) ug/ml Urine Barbiturates (Neg) Ur Phencyclidine (PCP) (Neg) U Amphetamin/Meth Scrn (Neg) MDMA (Ecstasy) Screen (Neg) U Benzodiazepines Scrn (Neg) Ur Cocaine Metabolite (Neg) U Marijuana (THC) Screen (Neg) Ethyl Alcohol mg/dL (<10.0) mg/dl SARS-CoV-2, RNA, NAAT NEGATIVE (NEGATIVE) 10/17/22 10/17/22 10/17/22 Range/Units 19:34 19:34 19:34 WBC (4.8-10.8) K/ul RBC (4.20-5.40) M/uL Hgb (12.0-16.0) g/dl Hct (37.0-47.0) % MCV (80.0-100.0) fL MCH (25.0-34.0) pg MCHC (32.0-36.0) g/dL RDW Std Deviation (36.4-46.3) fL RDW Coeff of Emily (11.5-14.5) % Plt Count (130-400) K/uL MPV (9.4-12.4) fL Immature Gran % (Auto) % Neut % (Auto) % Lymph % (Auto) % [place] % (Auto) % Eos % (Auto) % Baso % (Auto) % Neut # (Auto) (1.40-6.50) K/uL Lymph # (Auto) (1.2-3.4) K/uL [place] # (Auto) (0.11-0.59) K/uL Eos # (Auto) (0-0.50) K/uL Baso # (Auto) (0-0.2) K/uL Immature Gran # (Auto) (0.01-0.20) K/uL Sodium (136-145) mmol/L Potassium (3.5-5.1) mmol/L Chloride (98-107) mmol/L Carbon Dioxide (21-32) mmol/L Anion Gap (3-11) BUN (6-23) mg/dl Creatinine (0.6-1.2) mg/dl Est Cr Clr Drug Dosing ml/min Est GFR ( Amer) ml/min Est GFR (Non-Af Amer) ml/min BUN/Creatinine Ratio (10-20) Glucose (70-99(Fasting)) mg/dl Calcium (8.6-10.3) mg/dl Total Bilirubin (0.2-1.0) mg/dl AST (13-39) U/L ALT (7-52) U/L Alkaline Phosphatase (34-104) U/L Total Protein (6.0-8.3) gm/dl Albumin (3.4-5.0) gm/dl Globulin (2.5-4.0) gm/dl Albumin/Globulin Ratio (0.9-2) TSH 0.704 (0.300-4.500) uIu/ml Urine Color Urine Appearance (Clear) Urine pH (4.5-7.5) Ur Specific Adel (1.000-1.030) Urine Protein (Negative) Urine Glucose (UA) (Negative) Urine Ketones (Negative) Urine Blood (Negative) Urine Nitrite (Negative) Urine Bilirubin (Negative) Urine Urobilinogen (Negative) Ur Leukocyte Esterase (Negative) Urine WBC (Auto) (0-5) /hpf Urine RBC (Auto) (0-4) /hpf U Hyaline Cast (Auto) (0-5) /lpf U Epithel Cells (Auto) (0-5) /lpf Urine Bacteria (Auto) (Negative) Urine Mucus (None Prsent) Urine Test (Negative) POC Ur Test Salicylates < 3.0 L (3.0-30) mg/dl Urine Opiates Screen (Neg) Ur Methadone, Qual (Neg) Acetaminophen < 3 L (10-30) ug/ml Urine Barbiturates (Neg) Ur Phencyclidine (PCP) (Neg) U Amphetamin/Meth Scrn (Neg) MDMA (Ecstasy) Screen (Neg) U Benzodiazepines Scrn (Neg) Ur Cocaine Metabolite (Neg) U Marijuana (THC) Screen (Neg) Ethyl Alcohol mg/dL < 10.0 (<10.0) mg/dl SARS-CoV-2, RNA, NAAT (NEGATIVE) 10/17/22 Range/Units 19:44 WBC (4.8-10.8) K/ul RBC (4.20-5.40) M/uL Hgb (12.0-16.0) g/dl Hct (37.0-47.0) % MCV (80.0-100.0) fL MCH (25.0-34.0) pg MCHC (32.0-36.0) g/dL RDW Std Deviation (36.4-46.3) fL RDW Coeff of Emily (11.5-14.5) % Plt Count (130-400) K/uL MPV (9.4-12.4) fL Immature Gran % (Auto) % Neut % (Auto) % Lymph % (Auto) % [place] % (Auto) % Eos % (Auto) % Baso % (Auto) % Neut # (Auto) (1.40-6.50) K/uL Lymph # (Auto) (1.2-3.4) K/uL [place] # (Auto) (0.11-0.59) K/uL Eos # (Auto) (0-0.50) K/uL Baso # (Auto) (0-0.2) K/uL Immature Gran # (Auto) (0.01-0.20) K/uL Sodium (136-145) mmol/L Potassium (3.5-5.1) mmol/L Chloride (98-107) mmol/L Carbon Dioxide (21-32) mmol/L Anion Gap (3-11) BUN (6-23) mg/dl Creatinine (0.6-1.2) mg/dl Est Cr Clr Drug Dosing ml/min Est GFR ( Amer) ml/min Est GFR (Non-Af Amer) ml/min BUN/Creatinine Ratio (10-20) Glucose (70-99(Fasting)) mg/dl Calcium (8.6-10.3) mg/dl Total Bilirubin (0.2-1.0) mg/dl AST (13-39) U/L ALT (7-52) U/L Alkaline Phosphatase (34-104) U/L Total Protein (6.0-8.3) gm/dl Albumin (3.4-5.0) gm/dl Globulin (2.5-4.0) gm/dl Albumin/Globulin Ratio (0.9-2) TSH (0.300-4.500) uIu/ml Urine Color Urine Appearance (Clear) Urine pH (4.5-7.5) Ur Specific [place]el (1.000-1.030) Urine Protein (Negative) Urine Glucose (UA) (Negative) Urine Ketones (Negative) Urine Blood (Negative) Urine Nitrite (Negative) Urine Bilirubin (Negative) Urine Urobilinogen (Negative) Ur Leukocyte Esterase (Negative) Urine WBC (Auto) (0-5) /hpf Urine RBC (Auto) (0-4) /hpf U Hyaline Cast (Auto) (0-5) /lpf U Epithel Cells (Auto) (0-5) /lpf Urine Bacteria (Auto) (Negative) Urine Mucus (None Prsent) Urine Test (Negative) POC Ur Test Cancelled Salicylates (3.0-30) mg/dl Urine Opiates Screen (Neg) Ur Methadone, Qual (Neg) Acetaminophen (10-30) ug/ml Urine Barbiturates (Neg) Ur Phencyclidine (PCP) (Neg) U Amphetamin/Meth Scrn (Neg) MDMA (Ecstasy) Screen (Neg) U Benzodiazepines Scrn (Neg) Ur Cocaine Metabolite (Neg) U Marijuana (THC) Screen (Neg) Ethyl Alcohol mg/dL (<10.0) mg/dl SARS-CoV-2, RNA, NAAT (NEGATIVE) Administered Medications Aripiprazole (Aripiprazole 5 Mg Tab) 5 mg PO QAM [facility] Stop: 11/17/22 17:59 Last Admin: 10/18/22 19:10 Dose: 5 mg Documented By: PABLITO Lamotrigine (Lamotrigine 25 Mg Tab) 25 mg PO DAILY [facility] Stop: 11/17/22 10:29 Last Admin: 10/18/22 11:17 Dose: 25 mg Documented By: NAN Miscellaneous (Remove Nicoderm Patch) 1 each N/A DAILY@0859 [facility] Stop: 11/17/22 08:58 Last Admin: 10/18/22 09:48 Dose: Not Given Documented By: ANN Nicotine (Nicotine 14 Mg/24 Hr Patch) 14 mg TD QAM [facility] Stop: 11/17/22 08:59 Last Admin: 10/18/22 09:48 Dose: 14 mg Documented By: ANN Nicotine Polacrilex (Nicotine Polacrilex 2 Mg Gum) 1 piece MT PRN PRN PRN Reason: Nicotine Withdrawal Stop: 11/17/22 05:19 Last Admin: 10/18/22 20:33 Dose: 1 piece Documented By: Admin: 10/18/22 18:20 Dose: 1 piece Documented By: Admin: 10/18/22 13:36 Dose: 1 piece Documented By: Admin: 10/18/22 10:56 Dose: 1 piece Documented By: ANN Pantoprazole Sodium (Pantoprazole 40 Mg Tab) 40 mg PO DAILY [facility] Stop: 11/17/22 10:29 Last Admin: 10/18/22 11:17 Dose: 40 mg Documented By: ANN Trazodone HCl (Trazodone Hcl 50 Mg Tab) 50 mg PO HS [facility] Stop: 11/17/22 21:59 Last Admin: 10/18/22 20:59 Dose: 50 mg Documented By: PABLITO Trazodone HCl (Trazodone Hcl 50 Mg Tab) 50 mg PO HS PRN PRN Reason: if awake 1 hr post scheduled Stop: 11/17/22 21:59 Last Admin: 10/18/22 21:56 Dose: 50 mg Documented By: PABLITO Venlafaxine HCl (Venlafaxine Hcl Xr 150 Mg Capxr) 150 mg PO DAILY [facility] Stop: 11/17/22 17:29 Last Admin: 10/18/22 18:20 Dose: 150 mg Documented By: TAMARA Discontinued Medications Lorazepam (Lorazepam 1 Mg Tab) 1 mg SL NOW STA Stop: 10/17/22 20:13 Last Admin: 10/17/22 20:24 Dose: 1 mg Documented By: WINIFRED Lorazepam (Lorazepam 1 Mg Tab) 1 mg SL NOW STA Stop: 10/17/22 21:31 Last Admin: 10/17/22 21:38 Dose: 1 mg Documented By: RICCARDO Potassium Chloride (Potassium Chloride 10 Meq Tabcr) 40 meq PO NOW STA Stop: 10/18/22 02:22 Last Admin: 10/18/22 02:48 Dose: 40 meq Documented By: LAQUITA Discharge Plan Visit Data Chief Complaint: Mental Health Evaluation Stated Complaint: WITHDRAWS OF MED, ED Provider: Markie Faulkner Discharge Problem: Mood disorder, Depression, Suicidal ideations Patient Disposition: Admitted As Inpatient Discharge Instructions Interventions: ED Discharge Assessment Last Done: 10/18/22 05:00
[2022-10-17 19:56] LABS: Basophils # (auto) 0.08 K/uL (0-0.2); Basophils % (auto) 0.6 %; Eosinophils # (auto) 0.08 K/uL (0-0.50); Eosinophils % (auto) 0.6 %; Hematocrit (blood only) 41.3 % (37.0-47.0); Hemoglobin 14.4 g/dl (12.0-16.0); Immature Granulocytes # (auto) 0.03 K/uL (0.01-0.20); Immature Granulocytes % (auto) 0.2 %; Lymphocytes # (auto) 3.26 K/uL (1.2-3.4); Lymphocytes % (auto) 25.5 %; Mean Corpuscular Hemoglobin 28.5 pg (25.0-34.0); Mean Corpuscular Hgb Conc 34.9 g/dL (32.0-36.0); Mean Corpuscular Volume 81.6 fL (80.0-100.0); Mean Platelet Volume 10.4 fL (9.4-12.4); Monocytes # (auto) 0.87 K/uL (0.11-0.59); Monocytes % (auto) 6.8 %; Neutrophils # (auto) 8.46 K/uL (1.40-6.50); Neutrophils % (auto) 66.3 %; Platelet Count 415 K/uL (130-400); RDW Coefficient of Variation 16.1 % (11.5-14.5); RDW Standard Deviation 47.3 fL (36.4-46.3); Red Blood Count 5.06 M/uL (4.20-5.40); White Blood Count 12.78 K/ul (4.8-10.8)
[2022-10-17 19:59] LABS: Pregnancy Test, Urine Negative (Negative)
[2022-10-17 20:06] LABS: Appearance Urine Cloudy (Clear); Bacteria Urine Automated 1+ (Negative); Bilirubin Urine Negative (Negative); Blood Urine Negative (Negative); Color Urine Yellow; Epithelial Cell Urine Auto >30 /lpf (0-5); Glucose Urine UA Negative (Negative); Ketones Urine 3+ (Negative); Leukocyte Esterase Urine Negative (Negative); Nitrite Urine Negative (Negative); Protein Urine Trace (Negative); Specific Gravity Urine 1.023 (1.000-1.030); Urobilinogen Urine Negative (Negative); pH Urine 6.5 (4.5-7.5)
[2022-10-17] MEDS ORDERED: LORazepam 1 MG TAB SL STA ×2 (20:12→21:30)
[2022-10-17 20:14] LABS: Albumin Level 4.6 gm/dl (3.4-5.0); Bilirubin,Total 0.4 mg/dl (0.2-1.0); Calcium 9.5 mg/dl (8.6-10.3); Potassium 3.3 mmol/L (3.5-5.1)
[2022-10-17 20:17] LABS: Mucus Urine Present (None Prsent)
[2022-10-17 20:19] LABS: Acetaminophen < 3 ug/ml (10-30); Salicylate < 3.0 mg/dl (3.0-30)
[2022-10-17 20:20] LABS: Albumin Globulin Ratio 1.4 (0.9-2); BUN Creatinine Ratio 12.9 (10-20); Creatinine Clr Calc Pharmacy 141.4 ml/min; Est GFR (African American) 132.6 ml/min; Est GFR (Non-African American) 114.4 ml/min; Globulin 3.4 gm/dl (2.5-4.0)
[2022-10-17 20:37] LABS: Amphetamines+Metham, Urine Neg (Neg); Barbiturates, Urine Neg (Neg); Benzodiazepine, Urine Neg (Neg); Cocaine, Urine Neg (Neg); MDMA (Ecstacy), Urine Neg (Neg); Methadone, Urine Neg (Neg); Opiate, Urine Neg (Neg); Phencyclidine, Urine Neg (Neg)
[2022-10-18] MEDS ORDERED: POTASSIUM CHLORIDE 10 MEQ TABCR PO STA (02:21)
--- NOTE | 2022-10-18 04:23 | Emergency Department Note ---
ED Visit Note Patient was dispositioned to [facility]. Patient did require a dose of K-Dur p.o. per [facility]. protocol. I did order that for them. And the patient was again admitted to our hospital on [facility] psychiatry floor. .
[2022-10-18] MEDS ORDERED: MAGNESIUM HYDROXIDE SUSP 30 ML UDC PO PRN (05:20)
[2022-10-18] MEDS ORDERED: ALUMINUM/MAGNESIUM SUSP 30 ML UDC PO PRN (05:20)
[2022-10-18] MEDS ORDERED: BISMUTH SUBSALICYLATE LIQD 236 ML PO PRN (05:20)
[2022-10-18] MEDS ORDERED: ACETAMINOPHEN 325 MG TAB PO PRN (05:20)
[2022-10-18] MEDS ORDERED: hydrOXYzine HCl 25 MG TAB PO PRN ×2 (05:20)
[2022-10-18] MEDS ORDERED: SODIUM CHLORIDE 0.65% NA SOLN 45 ML (OCEAN) PRN (05:20)
[2022-10-18] MEDS: NICOTINE 14 MG/24 HR PATCH TD SCH (09:48)
[2022-10-18] MEDS: NICOTINE POLACRILEX 2 MG GUM MT PRN ×4 (10:56→20:33)
[2022-10-18] MEDS: lamoTRIgine 25 MG TAB PO SCH (11:17)
[2022-10-18] MEDS: PANTOprazole 40 MG TAB PO SCH (11:17)
--- NOTE | 2022-10-18 12:43 | History & Physical ---
Date of Service October 18, 2022 Impression / Recommendations Impression 37 y/o F with symptoms of both depression and min as well as considerable anxiety who is having intrusive suicidal thoughts and has been feeling hopeless. She is psychiatrically unstable and requires psychiatric admission for stabilization, safety, and medication adjustment. Reviewed the time course that strongly suggests that anxiety has been increasing as the venlafaxine dose has been diminishing and invited her to reframe how she views that medication not as an antidepressant that hasn't worked but as medication that is known to be effective for anxiety that appears to be working less well as the dose has been tapered. (1) Bipolar I disorder, most recent episode mixed, severe without psychotic features: (2) Post traumatic stress disorder (PTSD): Plan The patient was admitted to the [facility] ([facility] mental health unit) on q15 min checks (behavioral with suicide precautions) for safety. The patient will participate in group, recreational, and milieu therapies and will be offered additional individual and family sessions as clinically appropriate. * increase venlafaxine XR to 150 mg daily, consider further titration to 225 mg daily * continue slow lamotrigine titration, currently at 25 mg daily for 11 more days * start aripiprazole 5 mg daily for short-term mood stabilization * start trazodone for sleep, initially 50 mg at HS with a repeat of 50 mg if still awake in 1 hour * stop amitriptyline * lab, including B12, folic acid, and baseline glycohemoglobin and fasting lipids Inventory Assets Strengths: has local supports,voluntary, good insight, intelligent employed Needs: safety and stabilization, medication adjustment, additional coping skills, increased outpatient services Suicide Risk Level Suicide Risk Level: Moderate (q15 min suicide checks) Suicide Risk Level Comments: has suicidal thoughts on which she's never acted, feels safe in the hospital Risk Factors Assessment Male: No : Yes Do You Have Access To A Gun?: Yes (will be removing, SW to follow up with family) Health Problems: Yes Mental Health Diagnoses: Yes Substance Use Disorders: Yes Previous Attempt: No Family History of Suicide: Yes (father attempted several times, did not complete) Previous Psychiatric Hospitalization: No Protective Factors Assessment : No Responsible for Young Children: Yes Employed: Yes ([employer]) Supportive Family: No Psychiatric History Identifying Data SETH CHIN is a 37-year-old F who currently lives with her kids, has a history of bipolar disorder and PTSD, and was admitted on 10/18/22 02:30 on a 201 voluntary commitment for suicidal thoughts. Chief Complaint "I've just been so sad". History of Present Illness As part of a thorough review of the available medical records, I have read and confirmed the following note by the ED physician: "Patient is a 36-year-old female who presents to the ER for suicidal ideations. She notes that she has been struggling to hold it together. She does have a history of bipolar. She was recently decreased on her Effexor and added Lamictal within the past 24 hours. She is currently taking amitriptyline as well. She notes that she feels manic. She cannot sleep. She has not been eating and drinking. She has 2 girls and she feels they are much better off without her. She feels hopeless. She has not been able to go to work. She is getting no support from her family. She thinks that both her children would be much better off being raised by her mother. She denies any auditory visual hallucinations. She feels as though she is a danger to herself and cannot take it anymore and wants to come in to be admitted. No clear plan at this point to kill her self. But previously she has thought of driving off the road. Patient is a 37-year-old female who presents ER for above-stated complaint. Blood work was obtained and shows mild leukocytosis of 12.7. No anemia. BMP with mild hypokalemia 3.3 which I favor secondary to the acute tachypnea and her being worked up upon arrival. LFTs bilirubin was unremarkable. TSH was unremarkable. UA was contaminated. was negative. UA was positive for marijuana. Alcohol negative. COVID-negative. Patient was extremely worked up and crying and consequently blood pressures were mildly elevated in the 160s. She was given 2 dose of Ativan to help her calm down. She is feeling better. Blood pressure 130. She has no other complaints." the following notes by the ED psychiatric nurse outreach case manager: "The patient is tearful, reports not good and reports passive suicidal ideations with no current plan, but has had thoughts in the past of wrecking her car. She states with the way she is feeling now, he daughters (ages 13 and 15) would be better off with their grandmother. The patient reports there is a family history of Bipolar and she was recently diagnosed with this. She reports she has been on Effexor for years, but was recently started on Lamictal and her Effexor was decreased to 75mg yesterday by ROGER Queen with [facility]. The patient reports she is a single mother and her oldest daughter recently got in trouble for using marijuana, so she (the patient) no longer has her medical marijuana card (also reports stopping alcohol in June). The patient reports she has been having poor sleep due to her min as well as poor appetite. The patient is requesting inpatient treatment because she feels she cant continue to function like this." "The patient continues to express passive suicidal ideations and feels a little calmer after getting Ativan and crying. She lists stressors of recent medication changes, her older daughter getting into trouble for marijuana (had been stealing the patients medical marijuana), her boyfriend working all of the time but not helping with finances and her youngest daughter being good at softball which puts a financial as well as time strain on her (reports she is proud of her daughters ability). The patient reports depressive symptoms of anergia, anhedonia and changes in sleep patterns (which are also a symptom of her being manic). The patient reports she feels hungry but has a poor appetite and has reflux at times (mainly related to the decrease in her Effexor). The patient reports her sleep varies from going a few days with no sleep to sleeping a few days where she gets 3-4 hours to excessively sleeping. The patient reports manic symptoms of racing thoughts, pressured speech, decreased sleep and increased spending. She reports daily but not constant anxiety (currently a 7) with chest discomfort, GI upset and racing thoughts. The patient denies hallucinations, delusional thinking, drug or alcohol use (last used medical marijuana 5 days ago), self-injurious behaviors and aggressive behaviors. She reports she has never been inpatient for mental health, follows with [facility] and called [facility] today to try to get an appointment. The patient reports she is a smoker and would prefer to stay at [facility] if possible." the following note by the psychiatric liaison nurse: "Pt. blunted and tearful but pleasant and cooperative. Alert and Oriented x4. Pt. drove self to ED after having passive SI at home. Pt. states stressors include recent medication change, teenage daughter getting in trouble using marijuana, and not getting financial help from significant other. Pt. states she was recently diagnosed with Bipolar. Pt states lack of energy, lack of pleasure in doing things, and abnormal sleep. Pt. reports having racing thoughts, pressured speech and increased anxiety at home. This all resulted in recent increase in SI. Pt. denies a specific plan and states she has had continuos SI for awhile but has spontaneously increased because off added stressors. States diet has been poor lately. Smokes approx. 1+ pack a day as a coping mechanism. Pt. states she used to self medicate with alcohol daily with approx 10 drinks a day. Pt. stated she mostly stopped drinking at the beginning of 2022. Denies withdrawal symptoms. Denies hx of SIB. Uses medical marijuana. Denies hx suicide attempts. Pt. recently decreased on Effexor to 75mg PO Daily, recently started on lamotrigine 25mg PO Daily. Amitriptyline 25 PO evening, famotidine 20 PO daily. Outpatient providers include Debora Owusu, ROGER- Psychiatry at [facility], [facility] (has not been there yet), Amanda Denney (PCP). ROIs obtained for those providers as well as Blair Frank (significant other) and ANAID Amador (brother). Pt. states she has guns in the home. Stated she wants Blair to give them to ANAID so they can be locked up at her grandfather's house/safe. Car in ED parking lot (security notified)." Review of pertinent labs reveals they are significant for pyuria and bacteruria and for urine toxicology screen that was positive for metabolites of amphetamine. BAL was <10 mg/dL. Pt tells me she's "been on Effexor for years" at a dose of 225 mg/day. A couple of months ago she "decided to start weaning off it" because "it wasn't doing anything" and because she understood that people with bipolar conditions shouldn't use antidepressants. She's now at a dose of 75 mg/day. Over roughly the same time course, her anxiety has increased significantly. Her prescriber recently started her on lamotrigine. She's been taking amitriptyline for sleep but hasn't found it helpful. She's been feeling overwhelmed by depressed mood, anxiety, racing thoughts. She often feels psychomotorically agitated. She continues to experience suicidal thoughts but says she feels safe in the hospital Past Psychiatric History Current Psychiatric Diagnosis: MDD, SI Outpatient Services: ROGER Queen- Psychiatry at [facility], [facility] (has not been there yet) Previous Psych Admissions: denies Do You Have Access To A Gun?: Yes (will be removing, SW to follow up with family) History of Previous Suicide Attempt: No Past Medication Trials: duloxetine - does not remember dose, response, or reason for stopping; took it for neuropathic pain Allergies Allergy/AdvReac Type Severity Reaction Status Date / Time No Known Allergies Allergy Verified 07/04/22 17:04 Home Medications Medication Instructions Recorded Confirmed Type famotidine 20 mg tablet 20 mg PO DAILY 07/04/22 10/17/22 History amitriptyline 25 mg tablet 25 mg PO HS 10/17/22 10/18/22 History lamotrigine 25 mg tablet 25 mg PO 1XD 10/17/22 10/17/22 History omeprazole 40 mg capsule,delayed 40 mg PO 1XD 10/17/22 10/17/22 History release venlafaxine 75 mg capsule,extended 75 mg PO 1XD 10/17/22 10/17/22 History release 24 hr Family History Family History of: Depression, Anxiety, Alcoholism/Drug Abuse and Bipolar Family Mental Health History Comment: ADHD- oldest daughter dad has attempted suicide multiple times Alcohol History Hx of Alcohol Use Over the Past 12 Months: Yes (Last drank in June) AUDIT Total Score: 13 Smoking Use Have You Smoked or Used Tobacco Products in the Last 30 Days: Yes tobacco type: cigarettes Smoking Status: Current every day smoker Smoking packs per day: 1 Substance History Hx of Prescription Med Misuse Over the Past 12 Months: No Hx of Over the Counter Med Misuse Over the Past 12 Months: No Hx of Inhalent Misuse Over the Past 12 Months: No Hx of Organic Substance Use Over the Past 12 Months: No Hx of Illegal Substances/Street Drug Use Over Past 12 Months: No Problems as a Result of Past Substance Use: None Identified Personal History Living Arrangements: Apartment Highest Grade Completed: High School Graduate Highest Grade Completed Comment: 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 Marital Status: Number Of Children: 2 Beliefs That Will Affect Care: None Patient History Medical History (Updated 10/18/22 @ 18:10 by Bryon Moran MD) Depression Fibromyalgia IBS (irritable bowel syndrome) Kidney stones Mood disorder Ovarian cyst Surgical History History of colonoscopy Social History Smoking Status: Current every day smoker Tobacco Type: Cigarettes Hx Alcohol Use: No Preferred Language: Lao Communication Ability: Effective Curing Finisher Required: No Beliefs That Will Affect Care: None marital status: Single Current Living Situation: Alone current occupational status: employed Feels Safe at Home: Yes Gender Identity: Female Assistive Devices: Glasses Review of Systems Psychiatric: + depression, + hopelessness, + anhedonia, + suicidal ideation, + anxiety and + difficulty concentrating Physical Exam Psychiatric: Orientation: alert, oriented to person, oriented to place and oriented to time Apperance: appropriately dressed, + disheveled and appeared stated age Eye Contact: + fair eye contact restless, fidgety Speech: normal rate/rhythm/volume of speech Affect: + labile affect Mood: + depressed mood and + anxious mood Thought Process: + flight of ideas Thought Content: + cognitive distortions and + self deprecation Suicidal Thoughts: denies suicidal plan and denies suicidal intent; + reports suicidal thoughts Homicidal Thoughts: denies homicidal thoughts Hallucinations: no auditory hallucinations and no visual hallucinations Cognition: recent memory grossly intact, remote memory grossly intact, attention grossly intact and language grossly intact Estimated Intelligence: average estimated intelligence Insight: + fair insight Judgment: + fair judgement Vital Signs (Past 24 Hours): Last Vital Signs Temp 36.7 C 10/18/22 04:23 Pulse 93 H 10/18/22 04:23 Resp 18 10/18/22 04:23 BP 143/92 H 10/18/22 04:23 Pulse Ox 96 10/18/22 04:23 O2 Del Method Room Air 10/18/22 04:23 Exam Statement: A physical exam was performed in the ED for the purposes of medical clearance. I accept that physical as correct and adequate for the purposes of the inpatient physical exam. Results & Data (U) Laboratory Results Laboratory Results - last 24 hr 10/17/22 10/17/22 10/17/22 19:25 19:25 19:25 WBC RBC Hgb Hct MCV MCH MCHC RDW Std Deviation RDW Coeff of Emily Plt Count MPV Immature Gran % (Auto) Neut % (Auto) Lymph % (Auto) Hawkins % (Auto) Eos % (Auto) Baso % (Auto) Neut # (Auto) Lymph # (Auto) Hawkins # (Auto) Eos # (Auto) Baso # (Auto) Immature Gran # (Auto) Sodium Potassium Chloride Carbon Dioxide Anion Gap BUN Creatinine Est Cr Clr Drug Dosing Est GFR ( Amer) Est GFR (Non-Af Amer) BUN/Creatinine Ratio Glucose Calcium Total Bilirubin AST ALT Alkaline Phosphatase Total Protein Albumin Globulin Albumin/Globulin Ratio TSH Urine Color Yellow Urine Appearance Cloudy A Urine pH 6.5 Ur Specific [place] 1.023 Urine Protein Trace H Urine Glucose (UA) Negative Urine Ketones 3+ H Urine Blood Negative Urine Nitrite Negative Urine Bilirubin Negative Urine Urobilinogen Negative Ur Leukocyte Esterase Negative Urine WBC (Auto) 5-10 H Urine RBC (Auto) 5-10 H U Hyaline Cast (Auto) 1-5 U Epithel Cells (Auto) >30 H Urine Bacteria (Auto) 1+ H Urine Mucus Present A Urine Test Negative POC Ur Test Salicylates Urine Opiates Screen Neg Ur Methadone, Qual Neg Acetaminophen Urine Barbiturates Neg Ur Phencyclidine (PCP) Neg U Amphetamin/Meth Scrn Neg MDMA (Ecstasy) Screen Neg U Benzodiazepines Scrn Neg Ur Cocaine Metabolite Neg U Marijuana (THC) Screen Pos H U Marijuana THC Carboxy Drug Screen Comment Ethyl Alcohol mg/dL SARS-CoV-2, RNA, NAAT 10/17/22 10/17/22 10/17/22 19:25 19:30 19:34 WBC 12.78 H RBC 5.06 Hgb 14.4 Hct 41.3 MCV 81.6 MCH 28.5 MCHC 34.9 RDW Std Deviation 47.3 H RDW Coeff of Emily 16.1 H Plt Count 415 H MPV 10.4 Immature Gran % (Auto) 0.2 Neut % (Auto) 66.3 Lymph % (Auto) 25.5 Hawkins % (Auto) 6.8 Eos % (Auto) 0.6 Baso % (Auto) 0.6 Neut # (Auto) 8.46 H Lymph # (Auto) 3.26 Hawkins # (Auto) 0.87 H Eos # (Auto) 0.08 Baso # (Auto) 0.08 Immature Gran # (Auto) 0.03 Sodium Potassium Chloride Carbon Dioxide Anion Gap BUN Creatinine Est Cr Clr Drug Dosing Est GFR ( Amer) Est GFR (Non-Af Amer) BUN/Creatinine Ratio Glucose Calcium Total Bilirubin AST ALT Alkaline Phosphatase Total Protein Albumin Globulin Albumin/Globulin Ratio TSH Urine Color Urine Appearance Urine pH Ur Specific [place] Urine Protein Urine Glucose (UA) Urine Ketones Urine Blood Urine Nitrite Urine Bilirubin Urine Urobilinogen Ur Leukocyte Esterase Urine WBC (Auto) Urine RBC (Auto) U Hyaline Cast (Auto) U Epithel Cells (Auto) Urine Bacteria (Auto) Urine Mucus Urine Test POC Ur Test Salicylates Urine Opiates Screen Ur Methadone, Qual Acetaminophen Urine Barbiturates Ur Phencyclidine (PCP) U Amphetamin/Meth Scrn MDMA (Ecstasy) Screen U Benzodiazepines Scrn Ur Cocaine Metabolite U Marijuana (THC) Screen U Marijuana THC Carboxy Pending Drug Screen Comment Pending Ethyl Alcohol mg/dL SARS-CoV-2, RNA, NAAT NEGATIVE 10/17/22 10/17/22 10/17/22 19:34 19:34 19:34 WBC RBC Hgb Hct MCV MCH MCHC RDW Std Deviation RDW Coeff of Emily Plt Count MPV Immature Gran % (Auto) Neut % (Auto) Lymph % (Auto) Hawkins % (Auto) Eos % (Auto) Baso % (Auto) Neut # (Auto) Lymph # (Auto) Hawkins # (Auto) Eos # (Auto) Baso # (Auto) Immature Gran # (Auto) Sodium 138 Potassium 3.3 L Chloride 103 Carbon Dioxide 24 Anion Gap 11 BUN 8 Creatinine 0.62 Est Cr Clr Drug Dosing 141.4 Est GFR ( Amer) 132.6 Est GFR (Non-Af Amer) 114.4 BUN/Creatinine Ratio 12.9 Glucose 107 H Calcium 9.5 Total Bilirubin 0.4 AST 23 ALT 46 Alkaline Phosphatase 74 Total Protein 8.0 Albumin 4.6 Globulin 3.4 Albumin/Globulin Ratio 1.4 TSH 0.704 Urine Color Urine Appearance Urine pH Ur Specific [place] Urine Protein Urine Glucose (UA) Urine Ketones Urine Blood Urine Nitrite Urine Bilirubin Urine Urobilinogen Ur Leukocyte Esterase Urine WBC (Auto) Urine RBC (Auto) U Hyaline Cast (Auto) U Epithel Cells (Auto) Urine Bacteria (Auto) Urine Mucus Urine Test POC Ur Test Salicylates < 3.0 L Urine Opiates Screen Ur Methadone, Qual Acetaminophen < 3 L Urine Barbiturates Ur Phencyclidine (PCP) U Amphetamin/Meth Scrn MDMA (Ecstasy) Screen U Benzodiazepines Scrn Ur Cocaine Metabolite U Marijuana (THC) Screen U Marijuana THC Carboxy Drug Screen Comment Ethyl Alcohol mg/dL SARS-CoV-2, RNA, NAAT 10/17/22 10/17/22 19:34 19:44 WBC RBC Hgb Hct MCV MCH MCHC RDW Std Deviation RDW Coeff of Emily Plt Count MPV Immature Gran % (Auto) Neut % (Auto) Lymph % (Auto) Hawkins % (Auto) Eos % (Auto) Baso % (Auto) Neut # (Auto) Lymph # (Auto) Hawkins # (Auto) Eos # (Auto) Baso # (Auto) Immature Gran # (Auto) Sodium Potassium Chloride Carbon Dioxide Anion Gap BUN Creatinine Est Cr Clr Drug Dosing Est GFR ( Amer) Est GFR (Non-Af Amer) BUN/Creatinine Ratio Glucose Calcium Total Bilirubin AST ALT Alkaline Phosphatase Total Protein Albumin Globulin Albumin/Globulin Ratio TSH Urine Color Urine Appearance Urine pH Ur Specific [place] Urine Protein Urine Glucose (UA) Urine Ketones Urine Blood Urine Nitrite Urine Bilirubin Urine Urobilinogen Ur Leukocyte Esterase Urine WBC (Auto) Urine RBC (Auto) U Hyaline Cast (Auto) U Epithel Cells (Auto) Urine Bacteria (Auto) Urine Mucus Urine Test POC Ur Test Cancelled Salicylates Urine Opiates Screen Ur Methadone, Qual Acetaminophen Urine Barbiturates Ur Phencyclidine (PCP) U Amphetamin/Meth Scrn MDMA (Ecstasy) Screen U Benzodiazepines Scrn Ur Cocaine Metabolite U Marijuana (THC) Screen U Marijuana THC Carboxy Drug Screen Comment Ethyl Alcohol mg/dL < 10.0 SARS-CoV-2, RNA, NAAT Current Inpatient Medications Current Inpatient Medications: Current Inpatient Medications Acetaminophen (Acetaminophen 325 Mg Tab) 650 mg PO Q4H PRN PRN Reason: Headache or Minor Fever Stop: 11/17/22 05:19 Al Hydrox/Mg Hydrox/Simethicone (Aluminum/Magnesium Susp 30 Ml Udc) 30 ml PO Q4H PRN PRN Reason: GI Upset Stop: 11/17/22 05:19 Bismuth Subsalicylate (Bismuth Subsalicylate Liqd 236 Ml) 15 ml PO PRN PRN PRN Reason: Loose Stool Stop: 11/17/22 05:19 Famotidine (Famotidine 20 Mg Tab) 20 mg PO DAILY [facility] Stop: 11/18/22 08:59 Hydroxyzine HCl (Hydroxyzine Hcl 25 Mg Tab) 50 mg PO HSZ PRN PRN Reason: Insomnia Stop: 11/17/22 05:19 Hydroxyzine HCl (Hydroxyzine Hcl 25 Mg Tab) 25 mg PO Q4H PRN PRN Reason: Anxiety Stop: 11/17/22 05:19 Lamotrigine (Lamotrigine 25 Mg Tab) 25 mg PO DAILY [facility] Stop: 11/17/22 10:29 Magnesium Hydroxide (Magnesium Hydroxide Susp 30 Ml Udc) 30 ml PO DAILY PRN PRN Reason: Constipation Stop: 11/17/22 05:19 Miscellaneous (Remove Nicoderm Patch) 1 each N/A DAILY@0859 [facility] Stop: 11/17/22 08:58 Last Admin: 10/18/22 09:48 Dose: Not Given Nicotine (Nicotine 14 Mg/24 Hr Patch) 14 mg TD QAM [facility] Stop: 11/17/22 08:59 Last Admin: 10/18/22 09:48 Dose: 14 mg Nicotine Polacrilex (Nicotine Polacrilex 2 Mg Gum) 1 piece MT PRN PRN PRN Reason: Nicotine Withdrawal Stop: 11/17/22 05:19 Last Admin: 10/18/22 10:56 Dose: 1 piece Pantoprazole Sodium (Pantoprazole 40 Mg Tab) 40 mg PO DAILY [facility] Stop: 11/17/22 10:29 Sodium Chloride (Sodium Chloride 0.65% Na Soln 45 Ml ([place])) 1 - 2 sprays NA PRN PRN PRN Reason: Nasal Dryness/Congestion Stop: 11/17/22 05:19
[2022-10-18] MEDS: VENLAFAXINE HCL XR 150 MG CAPXR PO SCH (18:20)
[2022-10-18] MEDS: ARIPiprazole 5 MG TAB PO SCH (19:10)
[2022-10-18] MEDS: traZODone HCL 50 MG TAB PO PRN (21:56)
[2022-10-18] MEDS ORDERED: traZODone HCL 50 MG TAB PO SCH (22:00)
[2022-10-19] MEDS: ARIPiprazole 5 MG TAB PO SCH (09:01)
[2022-10-19] MEDS: lamoTRIgine 25 MG TAB PO SCH (09:02)
[2022-10-19] MEDS: FAMOTIDINE 20 MG TAB PO SCH (09:02)
[2022-10-19] MEDS: NICOTINE 14 MG/24 HR PATCH TD SCH (09:02)
[2022-10-19] MEDS: VENLAFAXINE HCL XR 150 MG CAPXR PO SCH (09:03)
[2022-10-19] MEDS: PANTOprazole 40 MG TAB PO SCH (09:03)
[2022-10-19] MEDS: NICOTINE POLACRILEX 2 MG GUM MT PRN ×4 (09:55→19:17)
[2022-10-19 10:06] LABS: Chol HDL Ratio 2.2 (0-5)
[2022-10-19 10:07] LABS: Estimated Average Glucose 114 mg/dl; Hemoglobin A1C 5.6 % (4.5-5.6)
--- NOTE | 2022-10-19 12:53 | Psychiatric Progress Note ---
Date of Service October 19, 2022 Impression / Recommendations Impression 37 y/o F with symptoms of both depression and min as well as considerable anxiety who is having intrusive suicidal thoughts and has been feeling hopeless. 10/19/2022: Pt has reported substantial improvement on rating scales, last night saying mood was 9/10 vs 1/10 the previous day. Today she says she tends to "start off a lot worse in the morning" and slowly improve over the course of the day. "Still not sleeping" despite total 100 mg trazodone last night. Reviewed with pt recent labs: B12, folate, A1c, fasting lipids were all normal. Vitamin D was 19. Pt asked about her potassium level, which was 3.3 in the ED but hasn't been repeated. 10/18/2022: She is psychiatrically unstable and requires psychiatric admission for stabilization, safety, and medication adjustment. Reviewed the time course that strongly suggests that anxiety has been increasing as the venlafaxine dose has been diminishing and invited her to reframe how she views that medication not as an antidepressant that hasn't worked but as medication that is known to be effective for anxiety that appears to be working less well as the dose has been tapered. (1) Bipolar I disorder, most recent episode mixed, severe without psychotic features: (2) Post traumatic stress disorder (PTSD): Plan 10/19/2022: * continue resumed venlafaxine XR 150 mg daily, consider further titration to 225 mg daily * continue slow lamotrigine titration, currently at 25 mg daily for 11 more days * continue aripiprazole 5 mg daily for short-term mood stabilization * continue trazodone for sleep, increase to 100 mg at HS with a repeat of 50 mg if still awake in 1 hour * metabolic panel 10/18/2022: The patient was admitted to the [facility] ([facility] mental health unit) on q15 min checks (behavioral with suicide precautions) for safety. The patient will participate in group, recreational, and milieu therapies and will be offered additional individual and family sessions as clinically appropriate. * increase venlafaxine XR to 150 mg daily, consider further titration to 225 mg daily * continue slow lamotrigine titration, currently at 25 mg daily for 11 more days * start aripiprazole 5 mg daily for short-term mood stabilization * start trazodone for sleep, initially 50 mg at HS with a repeat of 50 mg if still awake in 1 hour * stop amitriptyline * lab, including B12, folic acid, and baseline glycohemoglobin and fasting lipids Inventory Assets Strengths: supportive relationships, has local supports,voluntary, good insight, intelligent employed, Needs: safety and stabilization, medication adjustment, additional coping skills Suicide Risk Level Suicide Risk Level: Moderate (q15 min suicide checks) Risk Factors Assessment Male: No : Yes Do You Have Access To A Gun?: Yes (will be removing, SW to follow up with family) Health Problems: Yes Mental Health Diagnoses: Yes Substance Use Disorders: Yes Previous Attempt: No Family History of Suicide: Yes (father attempted several times, did not complete) Previous Psychiatric Hospitalization: No Protective Factors Assessment : No Responsible for Young Children: Yes Employed: Yes ([employer]) Supportive Family: No Interval History Identifying Information SETH CHIN is a 37-year-old F who currently lives with her kids, has a history of bipolar disorder and PTSD, and was admitted on 10/18/22 02:30 on a 201 voluntary commitment for suicidal thoughts. Chief Complaint "I was still pretty anxious this morning". Review of Systems Sleep Information Total Hours of Sleep: 7.25 Sleep Comments: Admitted overnight Meal Information Percent Meal Consumed - Breakfast: 100 Percent Meal Consumed - Lunch: 75 Percent Meal Consumed - Dinner: 75 Subjective Subjective Patient was seen & assessed and interval progress reviewed in a multidisciplinary team meeting with the treatment team. For details, see the "Im pression" section below. Physical Exam Psychiatric Orientation: alert, oriented to person, oriented to place and oriented to time Apperance: appropriately dressed, + disheveled and appeared stated age Eye Contact: + fair eye contact Speech: normal rate/rhythm/volume of speech Affect: + labile affect Mood: + depressed mood and + anxious mood Thought Process: + flight of ideas Thought Content: + cognitive distortions and + self deprecation Suicidal Thoughts: denies suicidal plan and denies suicidal intent; + reports suicidal thoughts Homicidal Thoughts: denies homicidal thoughts Hallucinations: no auditory hallucinations and no visual hallucinations Cognition: recent memory grossly intact, remote memory grossly intact, attention grossly intact and language grossly intact Estimated Intelligence: average estimated intelligence Insight: + fair insight Judgment: + fair judgement Vital Signs (Past 24 Hours) Last Vital Signs Temp 36.7 C 10/19/22 06:39 Pulse 89 10/19/22 06:40 Resp 16 10/19/22 06:39 BP 145/91 H 10/19/22 06:40 Pulse Ox 96 10/18/22 04:23 O2 Del Method Room Air 10/18/22 04:23 Results & Data ([facility]) Laboratory Results Laboratory Results - last 24 hr 10/19/22 10/19/22 10/19/22 08:47 08:47 08:47 Estimat Average Glucose 114 Hemoglobin A1c 5.6 Triglycerides 77 Cholesterol 129 LDL Cholesterol, Calc 56 VLDL Cholesterol, Calc 15 HDL Cholesterol 58 Cholesterol/HDL Ratio 2.2 Vitamin B12 287 25-OH Vitamin D Total 18.0 L Folate 17.90 Current Inpatient Medications Current Inpatient Medications: Current Inpatient Medications Acetaminophen (Acetaminophen 325 Mg Tab) 650 mg PO Q4H PRN PRN Reason: Headache or Minor Fever Stop: 11/17/22 05:19 Al Hydrox/Mg Hydrox/Simethicone (Aluminum/Magnesium Susp 30 Ml Udc) 30 ml PO Q4H PRN PRN Reason: GI Upset Stop: 11/17/22 05:19 Aripiprazole (Aripiprazole 5 Mg Tab) 5 mg PO QAM [facility] Stop: 11/17/22 17:59 Last Admin: 10/19/22 09:01 Dose: 5 mg Bismuth Subsalicylate (Bismuth Subsalicylate Liqd 236 Ml) 15 ml PO PRN PRN PRN Reason: Loose Stool Stop: 11/17/22 05:19 Famotidine (Famotidine 20 Mg Tab) 20 mg PO DAILY [facility] Stop: 11/18/22 08:59 Last Admin: 10/19/22 09:02 Dose: 20 mg Hydroxyzine HCl (Hydroxyzine Hcl 25 Mg Tab) 50 mg PO HSZ PRN PRN Reason: Insomnia Stop: 11/17/22 05:19 Hydroxyzine HCl (Hydroxyzine Hcl 25 Mg Tab) 25 mg PO Q4H PRN PRN Reason: Anxiety Stop: 11/17/22 05:19 Lamotrigine (Lamotrigine 25 Mg Tab) 25 mg PO DAILY [facility] Stop: 11/17/22 10:29 Last Admin: 10/19/22 09:02 Dose: 25 mg Magnesium Hydroxide (Magnesium Hydroxide Susp 30 Ml Udc) 30 ml PO DAILY PRN PRN Reason: Constipation Stop: 11/17/22 05:19 Miscellaneous (Remove Nicoderm Patch) 1 each N/A DAILY@0859 [facility] Stop: 11/17/22 08:58 Last Admin: 10/19/22 09:01 Dose: 1 each Nicotine (Nicotine 14 Mg/24 Hr Patch) 14 mg TD QAM [facility] Stop: 11/17/22 08:59 Last Admin: 10/19/22 09:02 Dose: 14 mg Nicotine Polacrilex (Nicotine Polacrilex 2 Mg Gum) 1 piece MT PRN PRN PRN Reason: Nicotine Withdrawal Stop: 11/17/22 05:19 Last Admin: 10/19/22 09:55 Dose: 1 piece Pantoprazole Sodium (Pantoprazole 40 Mg Tab) 40 mg PO DAILY [facility] Stop: 11/17/22 10:29 Last Admin: 10/19/22 09:03 Dose: 40 mg Sodium Chloride (Sodium Chloride 0.65% Na Soln 45 Ml ([place])) 1 - 2 sprays NA PRN PRN PRN Reason: Nasal Dryness/Congestion Stop: 11/17/22 05:19 Trazodone HCl (Trazodone Hcl 50 Mg Tab) 50 mg PO HS [facility] Stop: 11/17/22 21:59 Last Admin: 10/18/22 20:59 Dose: 50 mg Trazodone HCl (Trazodone Hcl 50 Mg Tab) 50 mg PO HS PRN PRN Reason: if awake 1 hr post scheduled Stop: 11/17/22 21:59 Last Admin: 10/18/22 21:56 Dose: 50 mg Venlafaxine HCl (Venlafaxine Hcl Xr 150 Mg Capxr) 150 mg PO DAILY [facility] Stop: 11/17/22 17:29 Last Admin: 10/19/22 09:03 Dose: 150 mg Mental Health & Subst Abuse Tx Psychiatrist Name of Psychiatrist: Joanne Psychiatry: Debora Owusu Psychiatrist's Date Of Appointment With Psychiatric Provider: 10/23/2022 Time of Appointment with Psychiatrist: 3:30pm Psychiatric Appointment Comment: telehealth Therapist Name of Therapist: Gary Dalal - intake with Dilma Timmons Therapist's Date of Therapist Appointment: 10/25/22 Time of Therapist Appointment: 1:30 PM Therapy Appointment Comment: [id number] [facility], [place] [address] Post Discharge Appointments Primary Care Physician Name Of Family Doctor/PCP: Elva Denney Primary [facility] Date of Future Appointment with PCP: 10/24/2022 Time of Appointment with PCP: 11:50am (please arrive at 11:35am) Provider Appointment Comment: [address] [facility] [address], [place] [id number] Contact Information Discharge Discharge Address: [address] [place] [address] [place] [id number]
[2022-10-19] MEDS ORDERED: ERGOCALCIFEROL 50,000 UNITS 1250 MCG CAP PO SCH (17:00)
[2022-10-19 18:32] LABS: BUN Creatinine Ratio 14.1 (10-20); Calcium 9.3 mg/dl (8.6-10.3); Est GFR (African American) 131.2 ml/min; Est GFR (Non-African American) 113.2 ml/min; Potassium 3.6 mmol/L (3.5-5.1)
[2022-10-19] MEDS: traZODone HCL 100 MG TAB PO SCH (21:21)
[2022-10-19] MEDS: SULFAMETHOXAZOLE/TRIMETHOPRIM DS 800/160MG TAB PO SCH (21:21)
[2022-10-20] MEDS: PANTOprazole 40 MG TAB PO SCH (08:58)
[2022-10-20] MEDS: ARIPiprazole 5 MG TAB PO SCH (08:58)
[2022-10-20] MEDS: VENLAFAXINE HCL XR 150 MG CAPXR PO SCH (08:58)
[2022-10-20] MEDS: NICOTINE 14 MG/24 HR PATCH TD SCH (08:58)
[2022-10-20] MEDS: lamoTRIgine 25 MG TAB PO SCH (08:58)
[2022-10-20] MEDS: SULFAMETHOXAZOLE/TRIMETHOPRIM DS 800/160MG TAB PO SCH ×2 (08:58→21:33)
[2022-10-20] MEDS: FAMOTIDINE 20 MG TAB PO SCH (08:58)
[2022-10-20] MEDS: NICOTINE POLACRILEX 2 MG GUM MT PRN ×3 (08:58→18:56)
--- NOTE | 2022-10-20 11:21 | Psychiatric Progress Note ---
Date of Service October 20, 2022 Impression / Recommendations Impression 37 y/o woman with recent diagnoses of PTSD and bipolar disorder resulting in taper of her venlafaxine with resultant worsening of mixed symptoms with SI, severe anxiety, intrusive suicidal thoughts and hopelessness. Diagnostically consistent with likely BPAD, GUERRERO and PTSD. She is deemed in need of psychiatric hospitalization for diagnostic clarification, safety and stabilization, medication management and development of further coping skills. 10/20/2022: Reviewed interim progress per Dr. Jordan's notes. Ongoing anxiety and depression but less hopeless today. Tolerating abilify for mood stabilization and seems to be improving with titration of venlafaxine so will continue this. Sleep improving with trazodone. Reviewed HbA1c and fasting lipid panel were normal. (1) Bipolar I disorder, most recent episode mixed, severe without psychotic features: (2) Post traumatic stress disorder (PTSD): Plan 10/20/2022: Increase venlafaxine ER to 225mg tomorrow. Continue with lamictal, Abilify and trazodone. 10/19/2022: * continue resumed venlafaxine XR 150 mg daily, consider further titration to 225 mg daily * continue slow lamotrigine titration, currently at 25 mg daily for 11 more days * continue aripiprazole 5 mg daily for short-term mood stabilization * continue trazodone for sleep, increase to 100 mg at HS with a repeat of 50 mg if still awake in 1 hour * metabolic panel 10/18/2022: The patient was admitted to the [facility] ([facility] mental [facility] unit) on q15 min checks (behavioral with suicide precautions) for safety. The patient will participate in group, recreational, and milieu therapies and will be offered additional individual and family sessions as clinically appropriate. * increase venlafaxine XR to 150 mg daily, consider further titration to 225 mg daily * continue slow lamotrigine titration, currently at 25 mg daily for 11 more days * start aripiprazole 5 mg daily for short-term mood stabilization * start trazodone for sleep, initially 50 mg at HS with a repeat of 50 mg if still awake in 1 hour * stop amitriptyline * lab, including B12, folic acid, and baseline glycohemoglobin and fasting lipids Inventory Assets Strengths: supportive relationships, has local supports,voluntary, good insight, intelligent employed, Needs: safety and stabilization, medication adjustment, additional coping skills Suicide Risk Level Suicide Risk Level: Moderate (q15 min suicide checks) (mixed mood episode with SI prior to admission but mood starting to improve, feels safe, agrees to alert staff if in need of additional support ) Risk Factors Assessment Male: No : Yes Do You Have Access To A Gun?: Yes (will be removing, SW to follow up with family) Health Problems: Yes Mental Health Diagnoses: Yes Substance Use Disorders: Yes Previous Attempt: No Family History of Suicide: Yes (father attempted several times, did not complete) Previous Psychiatric Hospitalization: No Protective Factors Assessment : No Responsible for Young Children: Yes Employed: Yes ([employer]) Supportive Family: No Interval History Identifying Information KIRTI CHIN is a 37-year-old F who currently lives with her kids, has a history of bipolar disorder and PTSD, and was admitted on 10/18/22 02:30 on a 201 voluntary commitment for suicidal thoughts. Chief Complaint "I think the medication needs to go higher". Review of Systems Sleep Information Total Hours of Sleep: 6.5 Sleep Comments: Meal Information Percent Meal Consumed - Breakfast: 90 Percent Meal Consumed - Lunch: 100 Percent Meal Consumed - Dinner: 100 Subjective Subjective Patient was seen & assessed and interval progress reviewed with treatment team nursing and social work. Kirti feels her anxiety is starting to improve with the higher dose of venlafaxine but would like to continue with the titration as she worries on 150mg daily she may have panic attacks or depression will worsen again. No side effects from abilify nor lamtical nor venlafaxine. Sleeping better with trazodone and Vistaril. Eager to schedule her family meeting to discuss things with family. Physical Exam Psychiatric Orientation: alert and oriented x 3 Apperance: appropriately dressed and appropriately groomed Eye Contact: good eye contact Speech: normal rate/rhythm/volume of speech Affect: + depressed affect and + anxious affect Mood: + depressed mood and + anxious mood Thought Process: + circumstantial thought process Thought Content: + cognitive distortions, reality based without delusions and + self deprecation Suicidal Thoughts: denies suicidal thoughts, denies suicidal plan and denies suicidal intent Homicidal Thoughts: denies homicidal thoughts Hallucinations: no auditory hallucinations and no visual hallucinations Cognition: recent memory grossly intact, remote memory grossly intact, attention grossly intact and language grossly intact Estimated Intelligence: average estimated intelligence Insight: + fair insight Judgment: + fair judgement Vital Signs (Past 24 Hours) Last Vital Signs Temp 36.9 C 10/20/22 06:00 Pulse 76 10/20/22 06:00 Resp 20 10/20/22 06:00 BP 158/87 H 10/20/22 06:39 Pulse Ox 96 10/20/22 06:00 O2 Del Method Room Air 10/20/22 06:00 Results & Data ([facility]) Laboratory Results Laboratory Results - last 24 hr 10/19/22 17:35 Sodium 138 Potassium 3.6 Chloride 105 Carbon Dioxide 25 Anion Gap 8 BUN 9 Creatinine 0.64 Est Cr Clr Drug Dosing 137.0 Est GFR ( Amer) 131.2 Est GFR (Non-Af Amer) 113.2 BUN/Creatinine Ratio 14.1 Glucose 104 H Calcium 9.3 Current Inpatient Medications Current Inpatient Medications: Current Inpatient Medications Acetaminophen (Acetaminophen 325 Mg Tab) 650 mg PO Q4H PRN PRN Reason: Headache or Minor Fever Stop: 11/17/22 05:19 Al Hydrox/Mg Hydrox/Simethicone (Aluminum/Magnesium Susp 30 Ml Udc) 30 ml PO Q4H PRN PRN Reason: GI Upset Stop: 11/17/22 05:19 Aripiprazole (Aripiprazole 5 Mg Tab) 5 mg PO QAM [facility] Stop: 11/17/22 17:59 Last Admin: 10/20/22 08:58 Dose: 5 mg Bismuth Subsalicylate (Bismuth Subsalicylate Liqd 236 Ml) 15 ml PO PRN PRN PRN Reason: Loose Stool Stop: 11/17/22 05:19 Ergocalciferol (Ergocalciferol 50,000 Units 1250 Mcg Cap) 50,000 units PO TuFr@0900 [facility] Stop: 11/18/22 16:59 Last Admin: 10/19/22 17:40 Dose: 50,000 units Famotidine (Famotidine 20 Mg Tab) 20 mg PO DAILY [facility] Stop: 11/18/22 08:59 Last Admin: 10/20/22 08:58 Dose: 20 mg Hydroxyzine HCl (Hydroxyzine Hcl 25 Mg Tab) 50 mg PO HSZ PRN PRN Reason: Insomnia Stop: 11/17/22 05:19 Hydroxyzine HCl (Hydroxyzine Hcl 25 Mg Tab) 25 mg PO Q4H PRN PRN Reason: Anxiety Stop: 11/17/22 05:19 Lamotrigine (Lamotrigine 25 Mg Tab) 25 mg PO DAILY [facility] Stop: 11/17/22 10:29 Last Admin: 10/20/22 08:58 Dose: 25 mg Magnesium Hydroxide (Magnesium Hydroxide Susp 30 Ml Udc) 30 ml PO DAILY PRN PRN Reason: Constipation Stop: 11/17/22 05:19 Miscellaneous (Remove Nicoderm Patch) 1 each N/A DAILY@0859 [facility] Stop: 11/17/22 08:58 Last Admin: 10/20/22 08:58 Dose: 1 each Nicotine (Nicotine 14 Mg/24 Hr Patch) 14 mg TD QAM [facility] Stop: 11/17/22 08:59 Last Admin: 10/20/22 08:58 Dose: 14 mg Nicotine Polacrilex (Nicotine Polacrilex 2 Mg Gum) 1 piece MT PRN PRN PRN Reason: Nicotine Withdrawal Stop: 11/17/22 05:19 Last Admin: 10/20/22 08:58 Dose: 1 piece Pantoprazole Sodium (Pantoprazole 40 Mg Tab) 40 mg PO DAILY [facility] Stop: 11/17/22 10:29 Last Admin: 10/20/22 08:58 Dose: 40 mg Sodium Chloride (Sodium Chloride 0.65% Na Soln 45 Ml ([place])) 1 - 2 sprays NA PRN PRN PRN Reason: Nasal Dryness/Congestion Stop: 11/17/22 05:19 Trazodone HCl (Trazodone Hcl 50 Mg Tab) 50 mg PO HS PRN PRN Reason: if awake 1 hr post scheduled Stop: 11/17/22 21:59 Last Admin: 10/18/22 21:56 Dose: 50 mg Trazodone HCl (Trazodone Hcl 100 Mg Tab) 100 mg PO HS [facility] Stop: 11/18/22 21:59 Last Admin: 10/19/22 21:21 Dose: 100 mg Trimethoprim/Sulfamethoxazole (Sulfamethoxazole/Trimethoprim Ds 800/160mg Tab) 1 tab PO Q12 [facility] Stop: 10/24/22 20:59 Last Admin: 10/20/22 08:58 Dose: 1 tab Venlafaxine HCl (Venlafaxine Hcl Xr 150 Mg Capxr) 150 mg PO DAILY [facility] Stop: 11/17/22 17:29 Last Admin: 10/20/22 08:58 Dose: 150 mg Mental Health & Subst Abuse Tx Psychiatrist Name of Psychiatrist: Joanne Psychiatry: Debora Owusu Psychiatrist's Date Of Appointment With Psychiatric Provider: 10/23/2022 Time of Appointment with Psychiatrist: 3:30pm Psychiatric Appointment Comment: telehealth Therapist Name of Therapist: Gary Dalal - intake with Dilma Timmons Therapist's Date of Therapist Appointment: 10/25/22 Time of Therapist Appointment: 1:30 PM Therapy App[facility]ment Comment[facility] [address] [place] [address] Post Discharge Appointments Primary Care Physician Name Of Family Doctor/PCP: Elva Denney Primary [facility] Date of Future Appointment with PCP: 10/24/2022 Time of Appointment with PCP: 11:50am (please arrive at 11:35am) Provider Appointment Comment: [address] [place] [address] [place] [address] Contact Information Discharge Discharge Address: [address] [place] [address] [place] [id number]
[2022-10-20 14:07] LABS: Marijuana Quant, GCMS Urine 350 ng/mL (<5)
[2022-10-20] MEDS: traZODone HCL 100 MG TAB PO SCH (21:33)
[2022-10-20] MEDS: traZODone HCL 50 MG TAB PO PRN (23:23)
[2022-10-21] MEDS: NICOTINE POLACRILEX 2 MG GUM MT PRN ×4 (07:09→20:30)
--- NOTE | 2022-10-21 08:49 | Psychiatric Progress Note ---
Date of Service October 21, 2022 Impression / Recommendations Impression 37 y/o woman with recent diagnoses of PTSD and bipolar disorder resulting in taper of her venlafaxine with resultant worsening of mixed symptoms with SI, severe anxiety, intrusive suicidal thoughts and hopelessness. Diagnostically consistent with likely BPAD, GUERRERO and PTSD. She is deemed in need of psychiatric hospitalization for diagnostic clarification, safety and stabilization, medication management and development of further coping skills. 10/21/2022: Still with anxiety but this improving and depression improving as well. Feeling hopefully and looking forward to being around her kids again. Tolerating initial dose of higher dose of venlafaxine ER so far today. Will consolidate trazodone to 150mg HS since she has been requiring use of additional trazodone prn. Discussed alternative options for sleep and anxiety, she agrees with waiting to see how much effect she gets from venlafaxine at the higher dose before adding on additional medications. (1) Bipolar I disorder, most recent episode mixed, severe without psychotic features: (2) Post traumatic stress disorder (PTSD): Plan 10/21/2022: Increase trazodone to 150mg HS tonight. Venlafaxine ER 225mg today. 10/20/2022: Increase venlafaxine ER to 225mg tomorrow. Continue with lamictal, Abilify and trazodone. 10/19/2022: * continue resumed venlafaxine XR 150 mg daily, consider further titration to 225 mg daily * continue slow lamotrigine titration, currently at 25 mg daily for 11 more days * continue aripiprazole 5 mg daily for short-term mood stabilization * continue trazodone for sleep, increase to 100 mg at HS with a repeat of 50 mg if still awake in 1 hour * metabolic panel 10/18/2022: The patient was admitted to the [facility] ([facility] mental health unit) on q15 min checks (behavioral with suicide precautions) for safety. The patient will participate in group, recreational, and milieu therapies and will be offered additional individual and family sessions as clinically appropriate. * increase venlafaxine XR to 150 mg daily, consider further titration to 225 mg daily * continue slow lamotrigine titration, currently at 25 mg daily for 11 more days * start aripiprazole 5 mg daily for short-term mood stabilization * start trazodone for sleep, initially 50 mg at HS with a repeat of 50 mg if still awake in 1 hour * stop amitriptyline * lab, including B12, folic acid, and baseline glycohemoglobin and fasting lipids Inventory Assets Strengths: supportive relationships, has local supports,voluntary, good insight, intelligent employed, Needs: safety and stabilization, medication adjustment, additional coping skills Suicide Risk Level Suicide Risk Level: Moderate (q15 min suicide checks) (mixed mood episode with SI prior to admission but mood improving, denies SI, feels safe, agrees to alert staff if in need of additional support ) Risk Factors Assessment Male: No : Yes Do You Have Access To A Gun?: Yes (will be removing, SW to follow up with family) Health Problems: Yes Mental Health Diagnoses: Yes Substance Use Disorders: Yes Previous Attempt: No Family History of Suicide: Yes (father attempted several times, did not complete) Previous Psychiatric Hospitalization: No Protective Factors Assessment : No Responsible for Young Children: Yes Employed: Yes ([employer]) Supportive Family: No Interval History Identifying Information SETH CHIN is a 37-year-old F who currently lives with her kids, has a history of bipolar disorder and PTSD, and was admitted on 10/18/22 02:30 on a 201 voluntary commitment for suicidal thoughts. Chief Complaint "pretty good". Review of Systems Sleep Information Total Hours of Sleep: 6 Meal Information Percent Meal Consumed - Breakfast: 90 Percent Meal Consumed - Lunch: 100 Percent Meal Consumed - Dinner: 100 Subjective Subjective Patient was seen & assessed and interval progress reviewed with treatment team nursing and social work. Engaging in groups, interactive with peers. Still having difficulty falling asleep due to racing thoughts but was able to after trazodone 100mg plus Vistaril prn and additional trazodone 50mg prn dose. Still with anxiety but this has been improving and she feels it is much more manageable. Tolerating higher dose of venlafaxine ER so far this morning without any side effects. Family meeting this morning, family working to secure gun by removing from the home today. Physical Exam Psychiatric Orientation: alert and oriented x 3 Apperance: appropriately dressed and appropriately groomed Eye Contact: good eye contact Speech: normal rate/rhythm/volume of speech Affect: + anxious affect Mood: + anxious mood Thought Process: + circumstantial thought process Thought Content: + cognitive distortions and reality based without delusions Suicidal Thoughts: denies suicidal thoughts, denies suicidal plan and denies suicidal intent Homicidal Thoughts: denies homicidal thoughts Hallucinations: no auditory hallucinations and no visual hallucinations Cognition: recent memory grossly intact, remote memory grossly intact, attention grossly intact and language grossly intact Estimated Intelligence: average estimated intelligence Insight: + fair insight Judgment: + fair judgement Vital Signs (Past 24 Hours) Last Vital Signs Temp 37.0 C 10/21/22 06:00 Pulse 53 L 10/21/22 06:00 Resp 18 10/21/22 06:00 BP 128/67 10/21/22 06:51 Pulse Ox 98 10/21/22 06:00 O2 Del Method Room Air 10/21/22 06:00 Results & Data ([facility]) Laboratory Results Laboratory Results - last 24 hr 10/17/22 19:25 U Marijuana THC Carboxy 350 H Drug Screen Comment SEE NOTE Current Inpatient Medications Current Inpatient Medications: Current Inpatient Medications Acetaminophen (Acetaminophen 325 Mg Tab) 650 mg PO Q4H PRN PRN Reason: Headache or Minor Fever Stop: 11/17/22 05:19 Al Hydrox/Mg Hydrox/Simethicone (Aluminum/Magnesium Susp 30 Ml Udc) 30 ml PO Q4H PRN PRN Reason: GI Upset Stop: 11/17/22 05:19 Aripiprazole (Aripiprazole 5 Mg Tab) 5 mg PO QAM [facility] Stop: 11/17/22 17:59 Last Admin: 10/20/22 08:58 Dose: 5 mg Bismuth Subsalicylate (Bismuth Subsalicylate Liqd 236 Ml) 15 ml PO PRN PRN PRN Reason: Loose Stool Stop: 11/17/22 05:19 Ergocalciferol (Ergocalciferol 50,000 Units 1250 Mcg Cap) 50,000 units PO TuFr@0900 [facility] Stop: 11/18/22 16:59 Last Admin: 10/19/22 17:40 Dose: 50,000 units Famotidine (Famotidine 20 Mg Tab) 20 mg PO DAILY [facility] Stop: 11/18/22 08:59 Last Admin: 10/20/22 08:58 Dose: 20 mg Hydroxyzine HCl (Hydroxyzine Hcl 25 Mg Tab) 50 mg PO HSZ PRN PRN Reason: Insomnia Stop: 11/17/22 05:19 Last Admin: 10/20/22 21:34 Dose: 50 mg Hydroxyzine HCl (Hydroxyzine Hcl 25 Mg Tab) 25 mg PO Q4H PRN PRN Reason: Anxiety Stop: 11/17/22 05:19 Lamotrigine (Lamotrigine 25 Mg Tab) 25 mg PO DAILY [facility] Stop: 11/17/22 10:29 Last Admin: 10/20/22 08:58 Dose: 25 mg Magnesium Hydroxide (Magnesium Hydroxide Susp 30 Ml Udc) 30 ml PO DAILY PRN PRN Reason: Constipation Stop: 11/17/22 05:19 Miscellaneous (Remove Nicoderm Patch) 1 each N/A DAILY@0859 [facility] Stop: 11/17/22 08:58 Last Admin: 10/20/22 08:58 Dose: 1 each Nicotine (Nicotine 14 Mg/24 Hr Patch) 14 mg TD QAM [facility] Stop: 11/17/22 08:59 Last Admin: 10/20/22 08:58 Dose: 14 mg Nicotine Polacrilex (Nicotine Polacrilex 2 Mg Gum) 1 piece MT PRN PRN PRN Reason: Nicotine Withdrawal Stop: 11/17/22 05:19 Last Admin: 10/21/22 07:09 Dose: 1 piece Pantoprazole Sodium (Pantoprazole 40 Mg Tab) 40 mg PO DAILY [facility] Stop: 11/17/22 10:29 Last Admin: 10/20/22 08:58 Dose: 40 mg Sodium Chloride (Sodium Chloride 0.65% Na Soln 45 Ml ([place])) 1 - 2 sprays NA PRN PRN PRN Reason: Nasal Dryness/Congestion Stop: 11/17/22 05:19 Trazodone HCl (Trazodone Hcl 50 Mg Tab) 50 mg PO HS PRN PRN Reason: if awake 1 hr post scheduled Stop: 11/17/22 21:59 Last Admin: 10/20/22 23:23 Dose: 50 mg Trazodone HCl (Trazodone Hcl 100 Mg Tab) 100 mg PO HS [facility] Stop: 11/18/22 21:59 Last Admin: 10/20/22 21:33 Dose: 100 mg Trimethoprim/Sulfamethoxazole (Sulfamethoxazole/Trimethoprim Ds 800/160mg Tab) 1 tab PO Q12 [facility] Stop: 10/24/22 20:59 Last Admin: 10/20/22 21:33 Dose: 1 tab Venlafaxine HCl (Venlafaxine Hcl Xr 75 Mg Capxr) 225 mg PO DAILY [facility] Stop: 11/20/22 08:59 Mental Health & Subst Abuse Tx Psychiatrist Name of Psychiatrist: Joanne Psychiatry: Debora Owusu Psychiatrist's Date Of Appointment With Psychiatric Provider: 10/23/2022 Time of Appointment with Psychiatrist: 3:30pm Psychiatric Appointment Comment: telehealth Therapist Name of Therapist: [place] Dalal - intake with Dilma Timmons Therapist's Date of Therapist Appointment: 10/25/22 Time of Therapist Appointment: 1:30 PM Therapy Appointment Comment: [address] [place], [place] [address] [place] Dalal [id number] Post Discharge Appointments Primary Care Physician Name Of Family Doctor/PCP: [facility] Date of Future Appointment with PCP: 10/24/2022 Time of Appointment with PCP: 11:50am (please arrive at 11:35am) Provider Appointment Comment: [address] [place] [address] E[place] Dalal [id number] Contact Information Discharge Discharge Address: [address] [place] [address] E[place] Dalal [id number]
[2022-10-21] MEDS: FAMOTIDINE 20 MG TAB PO SCH (09:01)
[2022-10-21] MEDS: ARIPiprazole 5 MG TAB PO SCH (09:01)
[2022-10-21] MEDS: NICOTINE 14 MG/24 HR PATCH TD SCH (09:02)
[2022-10-21] MEDS: lamoTRIgine 25 MG TAB PO SCH (09:02)
[2022-10-21] MEDS: PANTOprazole 40 MG TAB PO SCH (09:03)
[2022-10-21] MEDS: SULFAMETHOXAZOLE/TRIMETHOPRIM DS 800/160MG TAB PO SCH ×2 (09:03→21:00)
[2022-10-21] MEDS: VENLAFAXINE HCL XR 75 MG CAPXR PO SCH (09:04)
[2022-10-21] MEDS ORDERED: traZODone HCL 50 MG TAB PO SCH (22:00)
[2022-10-22] MEDS: lamoTRIgine 25 MG TAB PO SCH (09:06)
[2022-10-22] MEDS: FAMOTIDINE 20 MG TAB PO SCH (09:06)
[2022-10-22] MEDS: ARIPiprazole 5 MG TAB PO SCH (09:06)
[2022-10-22] MEDS: PANTOprazole 40 MG TAB PO SCH (09:07)
[2022-10-22] MEDS: NICOTINE 14 MG/24 HR PATCH TD SCH (09:07)
[2022-10-22] MEDS: SULFAMETHOXAZOLE/TRIMETHOPRIM DS 800/160MG TAB PO SCH (09:08)
[2022-10-22] MEDS: VENLAFAXINE HCL XR 75 MG CAPXR PO SCH (09:09)
--- NOTE | 2022-10-22 09:33 | Discharge Summary ---
Date of Service October 22, 2022 History of Present Illness Per admission H&P by Dr. Moran: As part of a thorough review of the available medical records, I have read and confirmed the following note by the ED physician: "Patient is a 36-year-old female who presents to the ER for suicidal ideations. She notes that she has been struggling to hold it together. She does have a history of bipolar. She was recently decreased on her Effexor and added Lamictal within the past 24 hours. She is currently taking amitriptyline as well. She notes that she feels manic. She cannot sleep. She has not been eating and drinking. She has 2 girls and she feels they are much better off without her. She feels hopeless. She has not been able to go to work. She is getting no support from her family. She thinks that both her children would be much better off being raised by her mother. She denies any auditory visual hallucinations. She feels as though she is a danger to herself and cannot take it anymore and wants to come in to be admitted. No clear plan at this point to kill her self. But previously she has thought of driving off the road. Patient is a 37-year-old female who presents ER for above-stated complaint. Blood work was obtained and shows mild leukocytosis of 12.7. No anemia. BMP with mild hypokalemia 3.3 which I favor secondary to the acute tachypnea and her being worked up upon arrival. LFTs bilirubin was unremarkable. TSH was unremarkable. UA was contaminated. was negative. UA was positive for marijuana. Alcohol negative. COVID-negative. Patient was extremely worked up and crying and consequently blood pressures were mildly elevated in the 160s. She was given 2 dose of Ativan to help her calm down. She is feeling better. Blood pressure 130. She has no other complaints." the following notes by the ED psychiatric case picker: "The patient is tearful, reports not good and reports passive suicidal ideations with no current plan, but has had thoughts in the past of wrecking her car. She states with the way she is feeling now, he daughters (ages13 and 15) would be better off with their grandmother. The patient reports there is a family history of Bipolar and she was recently diagnosed with this. She reports she has been on Effexor for years, but was recently started on Lamictal and her Effexor was decreased to 75mg yesterday by ROGER Queen with [facility]. The patient reports she is a single mother and her oldest daughter recently got in trouble for using marijuana, so she (the patient) no longer has her medical marijuana card (also reports stopping alcohol in June). The patient reports she has been having poor sleep due to her min as well as poor appetite. The patient is requesting inpatient treatment because she feels she cant continue to function like this." "The patient continues to express passive suicidal ideations and feels a little calmer after getting Ativan and crying. She lists stressors of recent medication changes, her older daughter getting into trouble for marijuana (had been stealing the patients medical marijuana), her boyfriend working all of the time but not helping with finances and her youngest daughter being good at softball which puts a financial as well as time strain on her (reports she is proud of her daughters ability). The patient reports depressive symptoms of anergia, anhedonia and changes in sleep patterns (which are also a symptom of her being manic). The patient reports she feels hungry but has a poor appetite and has reflux at times (mainly related to the decrease in her Effexor). The patient reports her sleep varies from going a few days with no sleep to sleeping a few days where she gets 3-4 hours to excessively sleeping. The patient reports manic symptoms of racing thoughts, pressured speech, decreased sleep and increased spending. She reports daily but not constant anxiety (currently a 7) with chest discomfort, GI upset and racing thoughts. The patient denies hallucinations, delusional thinking, drug or alcohol use (last used medical marijuana 5 days ago), self-injurious behaviors and aggressive behaviors. She reports she has never been inpatient for mental health, follows with [facility] and called [facility] today to try to get an appointment. The patient reports she is a smoker and would prefer to stay at [facility] if possible." the following note by the psychiatric liaison nurse: "Pt. blunted and tearful but pleasant and cooperative. Alert and Oriented x4. Pt. drove self to ED after having passive SI at home. Pt. states stressors include recent medication change, teenage daughter getting in trouble using marijuana, and not getting financial help from significant other. Pt. states she was recently diagnosed with Bipolar. Pt states lack of energy, lack of pleasure in doing things, and abnormal sleep. Pt. reports having racing thoughts, pressured speech and increased anxiety at home. This all resulted in recent increase in SI. Pt. denies a specific plan and states she has had continuos SI for awhile but has spontaneously increased because off added stressors. States diet has been poor lately. Smokes approx. 1+ pack a day as a coping mechanism. Pt. states she used to self medicate with alcohol daily with approx 10 drinks a day. Pt. stated she mostly stopped drinking at the beginning of 2022. Denies withdrawal symptoms. Denies hx of SIB. Uses medical marijuana. Denies hx suicide attempts. Pt. recently decreased on Effexor to 75mg PO Daily, recently started on lamotrigine 25mg PO Daily. Amitriptyline 25 PO evening, famotidine 20 PO daily. Outpatient providers include Debora Owusu, ROGER- Psychiatry at [facility], [facility] (has not been there yet), Amanda Denney (PCP). ROIs obtained for those providers as well as Blair Frank (significant other) and ANAID English (brother). Pt. states she has guns in the home. Stated she wants Blair to give them to ANAID so they can be locked up at her grandfather's house/safe. Car in ED parking lot (security notified)." Review of pertinent labs reveals they are significant for pyuria and bacteruria and for urine toxicology screen that was positive for metabolites of amphetamine. BAL was <10 mg/dL. Pt tells me she's "been on Effexor for years" at a dose of 225 mg/day. A couple of months ago she "decided to start weaning off it" because "it wasn't doing anything" and because she understood that people with bipolar conditions shouldn't use antidepressants. She's now at a dose of 75 mg/day. Over roughly the same time course, her anxiety has increased significantly. Her prescriber recently started her on lamotrigine. She's been taking amitriptyline for sleep but hasn't found it helpful. She's been feeling overwhelmed by depressed mood, anxiety, racing thoughts. She often feels psychomotorically agitated. She continues to experience suicidal thoughts but says she feels safe in the hospital Physical Exam Vital Signs (Past 24 Hours) Last Vital Signs Temp 36.7 C 10/22/22 06:33 Pulse 76 10/22/22 06:34 Resp 16 10/22/22 06:33 BP 146/81 H 10/22/22 06:34 Pulse Ox 98 10/21/22 06:00 O2 Del Method Room Air 10/21/22 06:00 See admission H&P and DOD summary. Principal Diagnosis Bipolar Affective Disorder Type II, mixed episode Psychiatric Data See daily stay summary. In short, patient was engaged with the social/therapeutic milieu of the unit, safety was maintained and the patient was cooperative with care. Medication changes included re-titration of Effexor XR to 225mg daily for depression and anxiety, trazodone 150mg HS for insomnia and abilify 5mg daily for mood stabilization until lamictal takes full effect and they tolerated this well. Baseline labs of HbA1c, fasting lipid profile, and weight were preformed and were within normal limits, recommend ongoing monitoring of HbA1c as currently at 5.6%. Recommend repeat weight in one month. Recommend repeat fasting glucose, HbA1c and fasting lipid profile every 12 weeks and then annually. If symptoms arise recommend checking BP, EKG, prolactin level as clinically indicated or relevant. Blood pressure was elevated during admission and actually improved slightly after initiation of venlafaxine ER so this was not felt to be a contributing factor. A family session was held and safety plan was completed prior to discharge. She actively and insightfully participated in safety planning and in discussions about ways to seek support and recognizing warning signs and utilizing coping skills. Reviewed mobile apps that could be used for additional ways to have their safety plan and contacts easily available should thoughts of SI re-emerge in the future. Reviewed importance of seeking emergency care should SI intensify, worsen or should they feel unsafe in the future which they agree to do. On the day of discharge she stated her mood was "happy" and remained future- oriented including seeing her family, her puppy, going to her daughter's softball games, working outside on the yard and engaging in aftercare appointments for psychiatry, primary care and therapy. Day of Discharge Assessment Today the patient voices readiness for discharge. They note improvement in mood and anxiety. They deny thoughts of harm to self or others. Thoughts are organized and they are clinically improved from admission. There is no evidence of psychosis. They improved in the hospital with support and medication adjustments. They agree to take medications as prescribed and keep follow-up appointments. At the time of the discharge they are deemed to be stable and appropriate for outpatient level of care. They are not deemed to be at imminent risk of harm to self or others. They are aware of emergency and crisis services. Knows to call 911 or go to nearest emergency care center if in a crisis which cannot be handled as an outpatient. Transition of Care Transition Of Care Record: was reviewed with the patient Advance Directives Advance Directives Information Provided: Yes Advance Directives: No Mental Health Advance Directive: No Advance Directives on File: No Living Will: No Power of [employer]man: No Advance Directives Reason:: Declines as Mental Health Visit. Suicide Risk Level Suicide Risk Level Comments: Acute risk is low given improvement in mood and denial of SI, lack of access to lethal means, improvement in sleep, hopefulness. Chronic risk is moderate given some non-modifiable risk factors: psychiatric co-morbid diagnoses, periods of impulsivity, emotional reactivity, mood disorder, family history of suicide attempts but also with protective factors including: good social support, sense of responsibility to family and social supports, outpatient care in place, positive coping skills, positive problem solving, capacity to establish therapeutic alliance, willingness to engage with treatment and capacity for self-observation. Counseled on ways to reduce acute and chronic risk including engaging with outpatient providers, using safety plan if needed, utilizing supports, taking medication, and using coping skills. Modifiable risk factors of SI, anxiety, mood changes and depression were addressed during hospitalization through development of new coping skills, family meeting, safety planning, and medication adjustments. Risk Factors Assessment Male: No : Yes Do You Have Access To A Gun?: No (family removed from the home) Health Problems: Yes Mental Health Diagnoses: Yes Substance Use Disorders: Yes Previous Attempt: No Family History of Suicide: Yes (father attempted several times, did not complete) Previous Psychiatric Hospitalization: No Hopelessness: No Protective Factors Assessment : No Responsible for Young Children: Yes Employed: Yes ([employer]) Stable Relationships: Yes Supportive Family: Yes Tobacco Cessation at Discharge Tobacco Cessation Medication Prescribed at Discharge: Offered & Pt Refused Discharge Data Lab Results 10/17/22 10/17/22 10/17/22 19:25 19:25 19:25 WBC RBC Hgb Hct MCV MCH MCHC RDW Std Deviation RDW Coeff of Emily Plt Count MPV Immature Gran % (Auto) Neut % (Auto) Lymph % (Auto) [place] % (Auto) Eos % (Auto) Baso % (Auto) Neut # (Auto) Lymph # (Auto) [place] # (Auto) Eos # (Auto) Baso # (Auto) Immature Gran # (Auto) Sodium Potassium Chloride Carbon Dioxide Anion Gap BUN Creatinine Est Cr Clr Drug Dosing Est GFR ( Amer) Est GFR (Non-Af Amer) BUN/Creatinine Ratio Glucose Estimat Average Glucose Hemoglobin A1c Calcium Total Bilirubin AST ALT Alkaline Phosphatase Total Protein Albumin Globulin Albumin/Globulin Ratio Triglycerides Cholesterol LDL Cholesterol, Calc VLDL Cholesterol, Calc HDL Cholesterol Cholesterol/HDL Ratio Vitamin B12 25-OH Vitamin D Total Folate TSH Urine Color Yellow Urine Appearance Cloudy A Urine pH 6.5 Ur Specific [place] 1.023 Urine Protein Trace H Urine Glucose (UA) Negative Urine Ketones 3+ H Urine Blood Negative Urine Nitrite Negative Urine Bilirubin Negative Urine Urobilinogen Negative Ur Leukocyte Esterase Negative Urine WBC (Auto) 5-10 H Urine RBC (Auto) 5-10 H U Hyaline Cast (Auto) 1-5 U Epithel Cells (Auto) >30 H Urine Bacteria (Auto) 1+ H Urine Mucus Present A Urine Test Negative POC Ur Test Salicylates Urine Opiates Screen Neg Ur Methadone, Qual Neg Acetaminophen Urine Barbiturates Neg Ur Phencyclidine (PCP) Neg U Amphetamin/Meth Scrn Neg MDMA (Ecstasy) Screen Neg U Benzodiazepines Scrn Neg Ur Cocaine Metabolite Neg U Marijuana (THC) Screen Pos H U Marijuana THC Carboxy Drug Screen Comment Ethyl Alcohol mg/dL SARS-CoV-2, RNA, NAAT 10/17/22 10/17/22 10/17/22 19:25 19:30 19:34 WBC 12.78 H RBC 5.06 Hgb 14.4 Hct 41.3 MCV 81.6 MCH 28.5 MCHC 34.9 RDW Std Deviation 47.3 H RDW Coeff of Emily 16.1 H Plt Count 415 H MPV 10.4 Immature Gran % (Auto) 0.2 Neut % (Auto) 66.3 Lymph % (Auto) 25.5 [place] % (Auto) 6.8 Eos % (Auto) 0.6 Baso % (Auto) 0.6 Neut # (Auto) 8.46 H Lymph # (Auto) 3.26 [place] # (Auto) 0.87 H Eos # (Auto) 0.08 Baso # (Auto) 0.08 Immature Gran # (Auto) 0.03 Sodium Potassium Chloride Carbon Dioxide Anion Gap BUN Creatinine Est Cr Clr Drug Dosing Est GFR ( Amer) Est GFR (Non-Af Amer) BUN/Creatinine Ratio Glucose Estimat Average Glucose Hemoglobin A1c Calcium Total Bilirubin AST ALT Alkaline Phosphatase Total Protein Albumin Globulin Albumin/Globulin Ratio Triglycerides Cholesterol LDL Cholesterol, Calc VLDL Cholesterol, Calc HDL Cholesterol Cholesterol/HDL Ratio Vitamin B12 25-OH Vitamin D Total Folate TSH Urine Color Urine Appearance Urine pH Ur Specific [place] Urine Protein Urine Glucose (UA) Urine Ketones Urine Blood Urine Nitrite Urine Bilirubin Urine Urobilinogen Ur Leukocyte Esterase Urine WBC (Auto) Urine RBC (Auto) U Hyaline Cast (Auto) U Epithel Cells (Auto) Urine Bacteria (Auto) Urine Mucus Urine Test POC Ur Test Salicylates Urine Opiates Screen Ur Methadone, Qual Acetaminophen Urine Barbiturates Ur Phencyclidine (PCP) U Amphetamin/Meth Scrn MDMA (Ecstasy) Screen U Benzodiazepines Scrn Ur Cocaine Metabolite U Marijuana (THC) Screen U Marijuana THC Carboxy 350 H Drug Screen Comment SEE NOTE Ethyl Alcohol mg/dL SARS-CoV-2, RNA, NAAT NEGATIVE 10/17/22 10/17/22 10/17/22 19:34 19:34 19:34 WBC RBC Hgb Hct MCV MCH MCHC RDW Std Deviation RDW Coeff of Emily Plt Count MPV Immature Gran % (Auto) Neut % (Auto) Lymph % (Auto) [place] % (Auto) Eos % (Auto) Baso % (Auto) Neut # (Auto) Lymph # (Auto) [place] # (Auto) Eos # (Auto) Baso # (Auto) Immature Gran # (Auto) Sodium 138 Potassium 3.3 L Chloride 103 Carbon Dioxide 24 Anion Gap 11 BUN 8 Creatinine 0.62 Est Cr Clr Drug Dosing 141.4 Est GFR ( Amer) 132.6 Est GFR (Non-Af Amer) 114.4 BUN/Creatinine Ratio 12.9 Glucose 107 H Estimat Average Glucose Hemoglobin A1c Calcium 9.5 Total Bilirubin 0.4 AST 23 ALT 46 Alkaline Phosphatase 74 Total Protein 8.0 Albumin 4.6 Globulin 3.4 Albumin/Globulin Ratio 1.4 Triglycerides Cholesterol LDL Cholesterol, Calc VLDL Cholesterol, Calc HDL Cholesterol Cholesterol/HDL Ratio Vitamin B12 25-OH Vitamin D Total Folate TSH 0.704 Urine Color Urine Appearance Urine pH Ur Specific [place] Urine Protein Urine Glucose (UA) Urine Ketones Urine Blood Urine Nitrite Urine Bilirubin Urine Urobilinogen Ur Leukocyte Esterase Urine WBC (Auto) Urine RBC (Auto) U Hyaline Cast (Auto) U Epithel Cells (Auto) Urine Bacteria (Auto) Urine Mucus Urine Test POC Ur Test Salicylates < 3.0 L Urine Opiates Screen Ur Methadone, Qual Acetaminophen < 3 L Urine Barbiturates Ur Phencyclidine (PCP) U Amphetamin/Meth Scrn MDMA (Ecstasy) Screen U Benzodiazepines Scrn Ur Cocaine Metabolite U Marijuana (THC) Screen U Marijuana THC Carboxy Drug Screen Comment Ethyl Alcohol mg/dL SARS-CoV-2, RNA, NAAT 10/17/22 10/17/22 10/19/22 19:34 19:44 08:47 WBC RBC Hgb Hct MCV MCH MCHC RDW Std Deviation RDW Coeff of Emily Plt Count MPV Immature Gran % (Auto) Neut % (Auto) Lymph % (Auto) [place] % (Auto) Eos % (Auto) Baso % (Auto) Neut # (Auto) Lymph # (Auto) [place] # (Auto) Eos # (Auto) Baso # (Auto) Immature Gran # (Auto) Sodium Potassium Chloride Carbon Dioxide Anion Gap BUN Creatinine Est Cr Clr Drug Dosing Est GFR ( Amer) Est GFR (Non-Af Amer) BUN/Creatinine Ratio Glucose Estimat Average Glucose 114 Hemoglobin A1c 5.6 Calcium Total Bilirubin AST ALT Alkaline Phosphatase Total Protein Albumin Globulin Albumin/Globulin Ratio Triglycerides Cholesterol LDL Cholesterol, Calc VLDL Cholesterol, Calc HDL Cholesterol Cholesterol/HDL Ratio Vitamin B12 25-OH Vitamin D Total Folate TSH Urine Color Urine Appearance Urine pH Ur Specific [place] Urine Protein Urine Glucose (UA) Urine Ketones Urine Blood Urine Nitrite Urine Bilirubin Urine Urobilinogen Ur Leukocyte Esterase Urine WBC (Auto) Urine RBC (Auto) U Hyaline Cast (Auto) U Epithel Cells (Auto) Urine Bacteria (Auto) Urine Mucus Urine Test POC Ur Test Cancelled Salicylates Urine Opiates Screen Ur Methadone, Qual Acetaminophen Urine Barbiturates Ur Phencyclidine (PCP) U Amphetamin/Meth Scrn MDMA (Ecstasy) Screen U Benzodiazepines Scrn Ur Cocaine Metabolite U Marijuana (THC) Screen U Marijuana THC Carboxy Drug Screen Comment Ethyl Alcohol mg/dL < 10.0 SARS-CoV-2, RNA, NAAT 10/19/22 10/19/22 10/19/22 08:47 08:47 17:35 WBC RBC Hgb Hct MCV MCH MCHC RDW Std Deviation RDW Coeff of Emily Plt Count MPV Immature Gran % (Auto) Neut % (Auto) Lymph % (Auto) [place] % (Auto) Eos % (Auto) Baso % (Auto) Neut # (Auto) Lymph # (Auto) [place] # (Auto) Eos # (Auto) Baso # (Auto) Immature Gran # (Auto) Sodium 138 Potassium 3.6 Chloride 105 Carbon Dioxide 25 Anion Gap 8 BUN 9 Creatinine 0.64 Est Cr Clr Drug Dosing 137.0 Est GFR ( Amer) 131.2 Est GFR (Non-Af Amer) 113.2 BUN/Creatinine Ratio 14.1 Glucose 104 H Estimat Average Glucose Hemoglobin A1c Calcium 9.3 Total Bilirubin AST ALT Alkaline Phosphatase Total Protein Albumin Globulin Albumin/Globulin Ratio Triglycerides 77 Cholesterol 129 LDL Cholesterol, Calc 56 VLDL Cholesterol, Calc 15 HDL Cholesterol 58 Cholesterol/HDL Ratio 2.2 Vitamin B12 287 25-OH Vitamin D Total 18.0 L Folate 17.90 TSH Urine Color Urine Appearance Urine pH Ur Specific [place] Urine Protein Urine Glucose (UA) Urine Ketones Urine Blood Urine Nitrite Urine Bilirubin Urine Urobilinogen Ur Leukocyte Esterase Urine WBC (Auto) Urine RBC (Auto) U Hyaline Cast (Auto) U Epithel Cells (Auto) Urine Bacteria (Auto) Urine Mucus Urine Test POC Ur Test Salicylates Urine Opiates Screen Ur Methadone, Qual Acetaminophen Urine Barbiturates Ur Phencyclidine (PCP) U Amphetamin/Meth Scrn MDMA (Ecstasy) Screen U Benzodiazepines Scrn Ur Cocaine Metabolite U Marijuana (THC) Screen U Marijuana THC Carboxy Drug Screen Comment Ethyl Alcohol mg/dL SARS-CoV-2, RNA, NAAT Hospital Course (1) Mixed bipolar II disorder: (2) Bipolar 2 disorder, major depressive episode: (3) Post traumatic stress disorder (PTSD): Plan 10/21/2022: Increase trazodone to 150mg HS tonight. Venlafaxine ER 225mg today. 10/20/2022: Increase venlafaxine ER to 225mg tomorrow. Continue with lamictal, Abilify and trazodone. 10/19/2022: * continue resumed venlafaxine XR 150 mg daily, consider further titration to 22 5 mg daily * continue slow lamotrigine titration, currently at 25 mg daily for 11 more days * continue aripiprazole 5 mg daily for short-term mood stabilization * continue trazodone for sleep, increase to 100 mg at HS with a repeat of 50 mg if still awake in 1 hour * metabolic panel 10/18/2022: The patient was admitted to the [facility] ([facility] mental health unit) on q15 min checks (behavioral with suicide precautions) for safety. The patient will participate in group, recreational, and milieu therapies and will be offered additional individual and family sessions as clinically appropriate. * increase venlafaxine XR to 150 mg daily, consider further titration to 225 mg daily * continue slow lamotrigine titration, currently at 25 mg daily for 11 more days * start aripiprazole 5 mg daily for short-term mood stabilization * start trazodone for sleep, initially 50 mg at HS with a repeat of 50 mg if still awake in 1 hour * stop amitriptyline * lab, including B12, folic acid, and baseline glycohemoglobin and fasting lipids Mental Health & Subst Abuse Tx Psychiatrist Name of Psychiatrist: Joanne Psychiatry: Debora Owusu Psychiatrist's Date Of Appointment With Psychiatric Provider: 10/23/2022 Time of Appointment with Psychiatrist: 3:30pm Psychiatric Appointment Comment: telehealth Psychiatrist Release of Information: Obtained, Reviewed and Signed Therapist Name of Therapist: Gary Dalal - intake with Dilma Timmons Therapist's Date of Therapist Appointment: 10/25/22 Time of Therapist Appointment: 1:30 PM Therapy Appointment Comment: [facility], [place] [address] Therapist Release of Information: Obtained, Reviewed and Signed Post Discharge Appointments Primary Care Physician Name Of Family Doctor/PCP: Elva Denney Primary [facility] Date of Future Appointment with PCP: 10/24/2022 Time of Appointment with PCP: 11:50am (please arrive at 11:35am) Provider Appointment Comment: [address] [place], [place] [id number] [id number] Primary Care Release of Information: Obtained, Reviewed and Signed Smoking Cessation Counseling Tobacco Cessation Medication Prescribed at Discharge: Offered & Pt Refused Other #1: Name of Aftercare Appointment: [facility] [place] ([facility] Aftercare Appointment Comment: Please visit [email or web address] for resources/support groups. Contact Information Discharge Discharge Address: [address] [place] [id number] Discharge Plan Discharge Items Patient Disposition: Home - Self-Care Reason For Visit: MIXED BIPOLAR DISORDER Discharge Diagnosis: Bipolar Affective Disorder type II, mixed episode Activity: Resume your previous activity Non-emergency contact: Primary Care Provider, Psychiatrist and Therapist Call non-emergency contact if: you have any medication questions and your symptoms worsen Follow-up/Referrals: Amanda Leggett DO [Primary Care Provider] - Diet: Regular Addtl Attending Provider Instructions: Optional mobile apps: -suicide safety plan -Virtual Hope Box -Panic mechanical repair worker SPECIAL CARE INSTRUCTIONS: 1. Follow through with your scheduled aftercare appointments. If unable to keep an appointment, please call to reschedule. 2. Take your medication only as prescribed. Medication should not be changed or stopped without the approval of your doctor. In the event of worsening symptoms or concerns about side effects, contact your doctor immediately. 3. Utilize new healthy coping skills, anger management skills, and stress management skills learned during your hospitalization. Journal feelings and process them with a support person. Identify stressors or situations that may result in relapse, deterioration or inappropriate behaviors and develop a plan to deal with those issues. 4. If your coping skills are ineffective and you are in crisis, contact your outpatient providers for direction. If unable to reach your providers, please call the [facility] CRISIS LINE AT , go to the [facility] walk-in center at [address], [address], [place], or go to the closest Emergency Room. 5. Avoid alcohol and un-prescribed drugs. 6. You have been provided with the Mental Health Advance Directives Pamphlet for your review. 7. Your condition is stable for discharge to outpatient level of care, but recovery is an ongoing process. Ifthoughts to harm yourself or others return, follow the safety plan developed during your stay. Planning for a safe return home includes securing weapons. Our treatment team recommends weaponsbe removed from the home until your outpatient provider reassesses your progress. In rare cases where the items themselvescannot be removed, guns and ammunitionshould be secured separatelyand keys stored by a reliable personoutside of the home. If you were admitted on an involuntary commitment, the police or other legal authorities may be involved in this process. AFTERCARE APPOINTMENTS: * Please call your insurance company prior to your scheduled appointment to confirm your aftercare providers are covered. Take your insurance information to your appointments. WHO TO CALL AND WHEN: Medical Emergencies: For questions or emergencies related to your hospital stay, please contact the Inpatient Behavioral Health Unit at [phone]. A finance analyst is on-call 31/12 for the Behavioral Health Unit for emergencies National Crisis hotline: 601 At any time you feel your situation is an emergency, you may also call 911 immediately. Pending Studies at Discharge: No Stand-Alone Forms: My [employer], Smoking Cessation Medications and DC Order Prescriptions: New venlafaxine 225 mg tablet extended release 24hr 225 mg PO DAILY 30 Days Qty: 30 0RF aripiprazole [Abilify] 5 mg Tablet 5 mg PO QAM 30 Days Qty: 30 0RF hydroxyzine HCl 50 mg tablet 50 mg PO HS PRN (Reason: insomnia/anxiety) 30 Days Qty: 30 0RF trazodone 150 mg tablet 150 mg PO HS 30 Days Qty: 30 0RF ergocalciferol (vitamin D2) 1,250 mcg (50,000 unit) Capsule 50,000 unit PO TuFr@0900 30 Days Qty: 10 0RF Continued famotidine 20 mg Tablet 20 mg PO DAILY lamotrigine 25 mg tablet 25 mg PO 1XD omeprazole 40 mg capsule,delayed release(DR/EC) 40 mg PO 1XD Discontinued venlafaxine 75 mg capsule,extended release 24hr 75 mg PO 1XD amitriptyline 25 mg tablet 25 mg PO HS Discharge Orders: Discharge Order (Routine); Ordered 10/22/22 Ordered By: Sandra Sands Admission Data Admit Date/Time: 10/18/22 02:30 Attending Provider: Sandra Sands Admit Provider: Bryon Moran Primary Care Provider: Amanda Leggett Coding Level of Care Code 50949 D/C day mgmt > 30 min Diagnoses Mixed bipolar II disorder F31.81 Bipolar 2 disorder, major depressive episode F31.81 Post traumatic stress disorder (PTSD) F43.10 Time Spent (min) 45
== END 2022-10-22 10:49 | disposition home or self-care (01) | DRG 885 ==
LOC: ED 19:04 → SUATTDRO 10-18 02:30 → 3S 10-18 02:30